=== PATIENT | female | born 1995 | race Caucasian/White ===

== ENCOUNTER → 2019-07-08 13:06 | Outpatient (BNVA) | payer MEDICARE, MEDICAID, SELFPAY | PROVIDERS: Visit Provider Nurse Practitioner Psychiatric/Mental Health | DX: F63.81 Intermittent explosive disorder (principal); F84.0 Autistic disorder; F71 Moderate intellectual disabilities | CPT/HCPCS: 99214 ==

== ENCOUNTER 2019-08-29 14:26 | Inpatient (IN) | payer MEDICARE, MEDICAID, SELFPAY ==
[2019-08-29 14:39] VITALS: RESP 16; BMI 25.0
[2019-08-29 14:48] VITALS: BP 144/84; PULSE 84; RESP 16; TEMP 36.8; O2SAT 100
--- NOTE | 2019-08-29 15:00 | W.ED.PSYCH ---
HPI - Psych General: Chief Complaint: Psychiatric Symptoms Stated Complaint: AMS Time Seen by Provider: 08/29/19 14:55 Source: patient and family Mode of arrival: ambulatory Limitations: no limitations History of Present Illness: HPI Narrative: Patient is a 24-year-old female who has a history of bipolar along with Asperger's and is currently on lithium along with multiple other meds. Her mother and patient states she has been hearing voices and people been telling her to do things through her window and in the [place]. She will not tell me what they are telling her. Mother states she has been increasingly agitated and difficult to control. Patient here does have flight of ideas and is very tangential thoughts. Denies any worsening improving factors. Denies any fevers. complaint: other (hallucinations) Onset (ago): week(s) Duration: intermittent History of same: Yes Relieving factors: none Exacerbating factors: none Associated psychiatric symptoms: racing thoughts and auditory hallucinations Associated symptoms: Reports auditory hallucinations; Deny depression Review of Systems Const: Denies: fever, chills, body aches or change in appetite Eyes: Denies: blurry vision or eye discomfort ENMT: Denies: throat pain or dental pain Card: Denies: chest pain Resp: Denies: shortness of breath GI: Denies: abdominal pain, nausea, vomiting or diarrhea : Denies: painful urination Musc: Denies: neck pain or back pain Skin/Breast: Denies: rash Neuro: Denies: headache Psych: Reports: mood swings, paranoia and auditory hallucinations; Denies: depression Aamir/Lymph: Denies: easy bruising All/Imm: Denies: hives [facility] ED PFSH: Medical History Asperger syndrome Autism Autism spectrum disorder Bipolar disorder History of reactive attachment disorder Hypothyroidism Intermittent explosive disorder Moderate intellectual disabilities Vitamin D deficiency Social History (Updated 07/09/19 @ 13:46 by Park Sheldon LPN) Smoking and tobacco status: never smoked Alcohol intake: never Physical Exam Const: COMMON NORMALS: no apparent distress, oriented x3 and healthy appearing HENMT: COMMON NORMALS: normocephalic and head/scalp atraumatic HEAD & SCALP: normocephalic and atraumatic Eye: COMMON NORMALS: PERRL and EOMs intact bilaterally PUPIL: Yes PERRL Neck/C-Spine: COMMON NORMALS: full ROM and supple Chest: COMMONS NORMALS: inspection of chest normal and palpation of chest normal Resp: COMMON NORMALS: normal respiratory effort, no retractions, no use of accessory muscles and clear to auscultation bilaterally AUSCULTATION: clear to auscultation bilaterally Cardio: COMMON NORMALS: regular rate, regular rhythm and no murmurs RATE: regular rate RHYTHM: regular rhythm GI: COMMON NORMALS: normal to inspection, nondistended, normoactive bowel sounds, soft to palpation, non-tender and no masses PALPATION: Yes soft Extremity: COMMON NORMALS: normal to inspection and full ROM Neuro: COMMON NORMALS: oriented x3, moves all extremities and no focal motor deficits Psych: COMMON NORMALS: cooperative ATTITUDE: Yes paranoid and Yes withdrawn Skin: COMMON NORMALS: no rashes or lesions noted and no wounds GENERAL SKIN EXAM: no rashes or lesions noted MDM - Psych MDM Narrative: Medical decision making narrative: Patient presents here with acute psychosis along with auditory hallucinations. I spoke to psychiatrist and will admit to the psychiatric unit. Patient is medically cleared lab work is all normal. Lab Data: Labs: Lab Results 08/29/19 08/29/19 08/29/19 Range/Units 15:08 15:08 15:08 WBC 7.0 (4.0-10.0) 10^3/ uL RBC 4.27 (4.1-5.3) 10^6/u L Hgb 12.7 (11.5-15.3) g/dL Hct 39.8 (37.0-47.0) % MCV 93.2 (81-99) fL MCH 29.7 (28.0-34.0) pg MCHC 31.9 (30.0-36.0) g/dL RDW 11.9 L (12.1-15.1) % Plt Count 197 (130-400) 10^3/c mm MPV 11.1 H (7.4-10.4) fL Neut % (Auto) 66.3 % Lymph % (Auto) 25.2 % [place] % (Auto) 6.3 % Eos % (Auto) 1.3 % Baso % (Auto) 0.6 % Neut # (Auto) 4.6 (1.8-7.7) 10^3/u L Lymph # (Auto) 1.8 (0.8-4.8) 10^3/u L [place] # (Auto) 0.4 (0.2-0.9) 10^3/u L Eos # (Auto) 0.1 (0.0-0.8) 10^3/u L Baso # (Auto) 0.0 (0.0-0.1) 10^3/u L Nucleated RBC % (a uto) 0 % Nucleated RBCs # 0.0 /100WBC Sodium 141 (136-145) mmol/L Potassium 3.6 (3.5-5.1) mmol/L Chloride 106 (98-107) mmol/L Carbon Dioxide 26 (22-29) mmol/L Anion Gap 12.6 (5-19) BUN 6 (6-20) mg/dL Creatinine 0.8 (0.5-0.9) mg/dL GFR Calculation 89.7 L (90-130) mL/min Glucose 109 (65-115) mg/dL Calculated Osmolal ity 288 (285-295) mOsm/k g Calcium 10.7 H (8.5-10.5) mg/dL Total Bilirubin 0.2 (0.15-1.2) mg/dL AST 15 (0-32) U/L ALT 16 (0-33) U/L Alkaline Phosphata se 62 (35-105) IU/L Total Protein 7.4 (6.6-8.7) g/dL Albumin 5.0 (3.5-5.2) g/dL Globulin 2.4 (1.3-4.6) g/dL HCG, Qual (Negative) Salicylates < 0.3 L (3-10) mg/dL Acetaminophen < 5.0 L (10-30) ug/mL [place] 1.0 (0.6-1.2) mmol/L Ethyl Alcohol < 10 (0-10) mg/dL 08/28/20 Range/Units 15:11 WBC (4.0-10.0) 10^3/ uL RBC (4.1-5.3) 10^6/u L Hgb (11.5-15.3) g/dL Hct (37.0-47.0) % MCV (81-99) fL MCH (28.0-34.0) pg MCHC (30.0-36.0) g/dL RDW (12.1-15.1) % Plt Count (130-400) 10^3/c mm MPV (7.4-10.4) fL Neut % (Auto) % Lymph % (Auto) % [place] % (Auto) % Eos % (Auto) % Baso % (Auto) % Neut # (Auto) (1.8-7.7) 10^3/u L Lymph # (Auto) (0.8-4.8) 10^3/u L [place] # (Auto) (0.2-0.9) 10^3/u L Eos # (Auto) (0.0-0.8) 10^3/u L Baso # (Auto) (0.0-0.1) 10^3/u L Nucleated RBC % (a uto) % Nucleated RBCs # /100WBC Sodium (136-145) mmol/L Potassium (3.5-5.1) mmol/L Chloride (98-107) mmol/L Carbon Dioxide (22-29) mmol/L Anion Gap (5-19) BUN (6-20) mg/dL Creatinine (0.5-0.9) mg/dL GFR Calculation (90-130) mL/min Glucose (65-115) mg/dL Calculated Osmolal ity (285-295) mOsm/k g Calcium (8.5-10.5) mg/dL Total Bilirubin (0.15-1.2) mg/dL AST (0-32) U/L ALT (0-33) U/L Alkaline Phosphata se (35-105) IU/L Total Protein (6.6-8.7) g/dL Albumin (3.5-5.2) g/dL Globulin (1.3-4.6) g/dL HCG, Qual Negative (Negative) Salicylates (3-10) mg/dL Acetaminophen (10-30) ug/mL [place] (0.6-1.2) mmol/L Ethyl Alcohol (0-10) mg/dL Discharge Plan Discharge Patient Disposition: Admitted As Inpatient Clinical Impression: Acute psychosis Condition: Stable Referrals: Francisco Clark, SALVATIONIST [Primary Care Provider] - Coding Level of Care Code ED Physical Medicine Physician for g Fwd Exam Comprehensive
[2019-08-29 15:29] LABS: Basophils % 0.6 %; Eosinophils # 0.1 10^3/uL (0.0-0.8); Eosinophils % 1.3 %; Hematocrit 39.8 % (37.0-47.0); Hemoglobin 12.7 g/dL (11.5-15.3); Lymphocytes # 1.8 10^3/uL (0.8-4.8); Lymphocytes % 25.2 %; Mean Corpuscular HGB Conc 31.9 g/dL (30.0-36.0); Mean Corpuscular Hemoglobin 29.7 pg (28.0-34.0); Mean Corpuscular Volume 93.2 fL (81-99); Mean Platelet Volume 11.1 fL (7.4-10.4); Monocytes # 0.4 10^3/uL (0.2-0.9); Monocytes % 6.3 %; Neutrophils # 4.6 10^3/uL (1.8-7.7); Neutrophils % 66.3 %; Nucleated Red Blood Cells % 0 %; Platelet Count 197 10^3/cmm (130-400); Red Blood Count 4.27 10^6/uL (4.1-5.3); Red Cell Distribution Width 11.9 % (12.1-15.1)
[2019-08-29 15:41] LABS: HCG Qualitative Urine. Negative (Negative)
[2019-08-29 15:44] LABS: Alanine Aminotransferase 16 U/L (0-33); Alkaline Phosphatase 62 IU/L (35-105); Anion Gap 12.6 (5-19); Aspartate Amino Transferase 15 U/L (0-32); Blood Urea Nitrogen 6 mg/dL (6-20); Calcium 10.7 mg/dL (8.5-10.5); Carbon Dioxide 26 mmol/L (22-29); Chloride 106 mmol/L (98-107); Globulin 2.4 g/dL (1.3-4.6); Glomerular Filtration Rate 89.7 mL/min (90-130); Glucose 109 mg/dL (65-115); Osmolality Calculated 288 mOsm/kg (285-295); Potassium 3.6 mmol/L (3.5-5.1); Sodium 141 mmol/L (136-145); Total Bilirubin 0.2 mg/dL (0.15-1.2); Total Protein 7.4 g/dL (6.6-8.7)
[2019-08-29 15:48] LABS: Acetaminophen < 5.0 ug/mL (10-30); Salicylate < 0.3 mg/dL (3-10)
[2019-08-29 15:49] LABS: Alcohol Level < 10 mg/dL (0-10)
[2019-08-29 16:37] VITALS: BP 140/82; PULSE 68; RESP 18; O2SAT 100
[2019-08-29 17:05] VITALS: BP 125/81; PULSE 70; RESP 18; TEMP 36.9; O2SAT 100
[2019-08-29 17:09] LABS: Amphetamines Screen Urine Negative (Negative); Barbiturates Screen Urine Negative (Negative); Benzodiazepines Screen Urine Negative (Negative); Cocaine Screen Urine Negative (Negative); Opiate Screen Urine Negative (Negative); PCP Screen Urine Negative (Negative); THC Screen Urine Negative (Negative)
[2019-08-29] MEDS: lithium carbonate 300 mg Capsule 600 MG PO (21:27)
[2019-08-29] MEDS: trazodone 50 mg Tablet PO (21:27)
[2019-08-29] MEDS: mirtazapine 30 mg Tablet PO (21:27)
[2019-08-29 22:00] VITALS: BP 136/82; PULSE 76; RESP 17; TEMP 36.9; O2SAT 98
[2019-08-30 06:00] VITALS: BP 116/74; PULSE 76; RESP 18; TEMP 37.2; O2SAT 99
[2019-08-30] MEDS: lithium carbonate 300 mg Capsule PO (06:36)
--- NOTE | 2019-08-30 06:37 | PC.NURSE ---
am med at this time
[2019-08-30] MEDS: montelukast sodium 10 mg Tablet PO (08:32)
[2019-08-30] MEDS: levothyroxine 25 mcg Tablet PO (08:32)
--- NOTE | 2019-08-30 12:15 | PM.NHP ---
Providers/Chief Complaint Admitting Physician: Vishnu Grijalva MD Primary Care Provider: VANESA Stark Chief Complaint: AMS;96 HPI NPU History of Present Illness Jina Ugalde is a 24 year old female Chief complaint: History of present illness: Laboratory Tests 08/29/19 08/29/19 15:08 15:11 Urine Opiates Screen Negative Ur Barbiturates Screen Negative Ur Phencyclidine Scrn Negative Ur Amphetamines Screen Negative U Benzodiazepines Scrn Negative Urine Cocaine Screen Negative U Marijuana (THC) Screen Negative Ethyl Alcohol < 10 ER physician note: Patient is a 24-year-old female who has a history of bipolar along with Asperger's and is currently on lithium along with multiple other meds. Her mother and patient states she has been hearing voices and people been telling her to do things through her window and in the [place]. She will not tell me what they are telling her. Mother states she has been increasingly agitated and difficult to control. Patient here does have flight of ideas and is very tangential thoughts. Denies any worsening improving factor Mental health history: Social history: Legal history: Past medical history: Mental Status Exam: Appearance: hygiene is fair; no gross neurological deficits., gait is unremarkable; AIMS=0 Speech: Speech is of normal rate and rhythm and easily understood. Thought processes: Thought processes are abstract. Judgment is not adequate for safety. Associations: intact Psychotic processes: There is no indication of guarding or paranoia. There is no attention to the internal stimuli. Auditory and visual hallucinations are denied. Judgment: Insight is fair. Problem solving skills are adequate for safety. Orientation: The patient is oriented to person, place time and situation. Memory: no deficits noted in immediate, intermediate, or remote spheres. Attention: The patient is alert and interpersonally engaged. Language: Verbalizations are coherent. Fund of knowledge: Fund of knowledge is adequate. Affect/Mood: Affect is consistent with a depressed mood. ([]) suicidal ideation Affective range iappropriate. Psychosis: perception unimpaired except through cognitive distortion; reality testing intact. Diagnoses: Assessment: Treatment plan: Due to the psychiatric conditions and treatment listed in the Assessment and Plan - the patient requires continued hospitalization. Will provide a safe and therapeutic environment for patient.. Will continue inpatient treatment to allow for medication adjustment and monitoring. Will continue q15 min safety checks. Will continue current medications and monitor for medication side effects. Monitor patient's mood, sleep, appetite, and behavior closely. Encourage patient to participate in individual and group therapeutic sessions on the hopper. Estimated length of stay 5 days The expected benefits and potential side effects of patient's psychiatric medications were discussed with the patient. The patient understands and consents to treatment.CRITERIA FOR DISCHARGE: stable on medications and no longer an im Meds NPU Home Medications Medication Instructions Recorded Confirmed Type ibuprofen 200 mg capsule 400 mg PO Q8H PRN 07/08/19 08/29/19 History levothyroxine 25 mcg capsule 25 mcg PO DAILY 07/08/19 08/29/19 History mometasone 50 mcg/actuation nasal 2 spray INTRANASAL DAILY PRN 07/08/19 08/29/19 History spray Geodon 60 mg PO QAM 08/29/19 08/29/19 History Geodon See Rx Instructions .ROUTE .COMPLEX 08/29/19 08/29/19 History PNV,calcium 38-yppp-pxfbz acid 1 tab PO DAILY 08/29/19 08/29/19 History [ Vitamin Plus Low Iron] Remeron 30 mg PO BEDTIME 08/29/19 08/29/19 History cholecalciferol (vitamin D3) 50,000 unit PO Q7D 08/29/19 08/29/19 History divalproex 250 mg PO BID 08/29/19 08/29/19 History ipratropium bromide 2 spray INTRANASAL TID PRN 08/29/19 08/29/19 History montelukast 10 mg PO DAILY 08/29/19 08/29/19 History prazosin 1 mg PO BEDTIME 08/29/19 08/29/19 History Allergies Allergy/AdvReac Type Severity Reaction Status Date / Time No Known Allergies Allergy Unverified 07/08/19 13:13 PFS NPU PFSH: Medical History Asperger syndrome Autism Autism spectrum disorder Bipolar disorder History of reactive attachment disorder Hypothyroidism Intermittent explosive disorder Moderate intellectual disabilities Vitamin D deficiency Social History (Updated 07/09/19 @ 13:46 by Park Sheldon LPN) Smoking and tobacco status: never smoked Alcohol intake: never Vitals/I&O/Wt Last Vital Signs Temp 98.9 F 08/30/19 06:00 Pulse 76 08/30/19 06:00 Resp 18 08/30/19 06:00 BP 116/74 08/30/19 06:00 Pulse Ox 99 08/30/19 06:00 Weight last 48 hrs Weight 72.575 kg Data NPU : 08/29/19 15:08 08/29/19 15:08 Involuntary Hold Information 96 Hour Hold: 96 Hour Involuntary Admission: Yes 96 Hour Hold Ending Date: 09/04/19 96 Hour Hold Ending Time: 15:20 Coding Level of Care Code Acute Automated Equipment Engineer Technician for Dev Guzmán
--- NOTE | 2019-08-30 12:42 | P.HP_ITS ---
Providers/Chief Complaint Admitting Physician: Vishnu Grijalva MD Primary Care Provider: VANESA Stark Chief Complaint: AMS;96 HPI NPU History of Present Illness CC: I am afraid they are going to kill all my babies. I think I am doing good. Jina Ugalde is a 24 year old female under guardianship t her mother. She was admitted apparently due to increasing auditory hallucinations. The pateint says that the (adoptive) mother is the one who is crazy. However, the patient was so disorganized in her interview that target symptoms coudl not be identified. She knows that she is on lithium and Geodon but believes the lithium is to help calm her down. She does not know what the Geodon is for. She answered questions in such an obtuse manner that the interview provided no factual information (see MSE below). She talked about her 30 yo niece named Mojgan. She has 12 children and she can hear them screaming at night. She spends her day watching . Could not say what she was watching. Laboratory Tests 08/29/19 08/29/19 15:08 15:11 Urine Opiates Screen Negative Ur Barbiturates Screen Negative Ur Phencyclidine Scrn Negative Ur Amphetamines Screen Negative U Benzodiazepines Scrn Negative Urine Cocaine Screen Negative U Marijuana (THC) Screen Negative Ethyl Alcohol < 10 [place] level on current dosage = 1.0 ER physician note: Patient is a 24-year-old female who has a history of bipolar along with Asperger's and is currently on lithium along with multiple other meds. Her mother and patient states she has been hearing voices and people been telling her to do things through her window and in the [place]. She will not tell me what they are telling her. Mother states she has been increasingly agitated and difficult to control. Patient here does have flight of ideas and is very tangential thoughts. Denies any worsening improving factors. Mental health history: pt was able to estimate that she had been hospitalized because my mother wanted it about 8 times variously at [place]. They did nothing that was helpful though she could not name anything that anyone did for her. She could not remember any medication trials that she had. Social history: patient is adopted. Details are unknown. Legal history: no history of felonies or arrests in [place] public record Past medical history:unknown Mental Status Exam: the patient is an alert interpersonally engaged female appearing approximately her stated age. She is wide eyed and hypervigilant. She has a minimal left esotropia. She is not a relaible informant. Information is nonsense much of the time and not internally consistent. Appearance: hygiene is fair; no gross neurological deficits., gait is unremarkable; AIMS=0 Speech: Speech is of normal rate and rhythm and easily understood. Thought processes: Thought processes are illogical She is not goal directed. Answers are non-sequiters often. She speaks ini the format of complete sentences but often they do not make any sense. Judgment is not adequate for safety. Associations: loose and often non-existent Psychotic processes: There is no indication of guarding or paranoia. There is no attention to the internal stimuli. Auditory and visual hallucinations are denied. Judgment: Insight is extremely poor. Problem solving skills are not adequate for safety. Orientation: The patient is oriented to person, place time and situation. Memory: unable to assess memory without collateral information source Attention: The patient is alert and interpersonally engaged. Language: Verbalizations are coherent. Fund of knowledge: Fund of knowledge is not assessed Affect/Mood: Affect is tense and hypervigilant with a euthymic mood. She denied suicidal ideation Affective range good Psychosis: perception is severely impaired by disorganized thinking Diagnoses: Schizophrenia - acute , disorganized type Assessment: This situation is difficult to assess without further background and baseline data. Treatment plan: Due to the psychiatric conditions and treatment listed in the Assessment and Plan - the patient requires continued hospitalization. Will provide a safe and therapeutic environment for patient.. Will continue inpatient treatment to allow for medication adjustment and monitoring. Will continue q15 min safety checks. Will continue current medications and monitor for medication side effects. No further medication interventions will be initiated but will be considered after brief observation period. Monitor patient's mood, sleep, appetite, and behavior closely. Encourage patient to participate in individual and group therapeutic sessions on the hopper. Estimated length of stay 5 days The expected benefits and potential side effects of patient's psychiatric medications were discussed with the patient. The patient understands and consents to treatment.CRITERIA FOR DISCHARGE: stable on medications and no longer an imminent risk Meds NPU Home Medications Medication Instructions Recorded Confirmed Type ibuprofen 200 mg capsule 400 mg PO Q8H PRN 07/08/19 08/29/19 History levothyroxine 25 mcg capsule 25 mcg PO DAILY 07/08/19 08/29/19 History mometasone 50 mcg/actuation nasal 2 spray INTRANASAL DAILY PRN 07/08/19 08/29/19 History spray Geodon 60 mg PO QAM 08/29/19 08/29/19 History Geodon See Rx Instructions .ROUTE .COMPLEX 08/29/19 08/29/19 History PNV,calcium 97-yddx-ctxss acid 1 tab PO DAILY 08/29/19 08/29/19 History [ Vitamin Plus Low Iron] Remeron 30 mg PO BEDTIME 08/29/19 08/29/19 History cholecalciferol (vitamin D3) 50,000 unit PO Q7D 08/29/19 08/29/19 History divalproex 250 mg PO BID 08/29/19 08/29/19 History ipratropium bromide 2 spray INTRANASAL TID PRN 08/29/19 08/29/19 History montelukast 10 mg PO DAILY 08/29/19 08/29/19 History prazosin 1 mg PO BEDTIME 08/29/19 08/29/19 History Allergies Allergy/AdvReac Type Severity Reaction Status Date / Time No Known Allergies Allergy Unverified 07/08/19 13:13 PFSH NPU PFSH: Medical History Asperger syndrome Autism Autism spectrum disorder Bipolar disorder History of reactive attachment disorder Hypothyroidism Intermittent explosive disorder Moderate intellectual disabilities Vitamin D deficiency Social History (Updated 07/09/19 @ 13:46 by Park Sheldon LPN) Smoking and tobacco status: never smoked Alcohol intake: never Vitals/I&O/Wt Last Vital Signs Temp 98.9 F 08/30/19 06:00 Pulse 76 08/30/19 06:00 Resp 18 08/30/19 06:00 BP 116/74 08/30/19 06:00 Pulse Ox 99 08/30/19 06:00 Weight last 48 hrs Weight 72.575 kg Data NPU : 08/29/19 15:08 08/29/19 15:08 Involuntary Hold Information 96 Hour Hold: 96 Hour Involuntary Admission: Yes 96 Hour Hold Ending Date: 09/04/19 96 Hour Hold Ending Time: 15:20 Attestations NPU Medical Necessity Statement*: Pt to remain in hospital another 7-8 nights for assessment of medication tolerance and efficacy. Coding Level of Care Code Acute Chronometer Tester for Dev Guzmán
[2019-08-30 12:51] VITALS: BP 106/72; PULSE 79; RESP 19; TEMP 36.9; O2SAT 99
[2019-08-30] MEDS: mirtazapine 30 mg Tablet PO (21:19)
[2019-08-30] MEDS: lithium carbonate 300 mg Capsule 600 MG PO (21:20)
[2019-08-30 22:00] VITALS: BP 124/79; PULSE 97; RESP 18; TEMP 37; O2SAT 100
[2019-08-31] MEDS: lithium carbonate 300 mg Capsule PO (05:58)
[2019-08-31 06:00] VITALS: BP 124/77; PULSE 91; RESP 17; TEMP 37; O2SAT 100
[2019-08-31] MEDS: montelukast sodium 10 mg Tablet PO (08:44)
[2019-08-31] MEDS: levothyroxine 25 mcg Tablet PO (08:44)
[2019-08-31 13:35] VITALS: BP 86/58; PULSE 97; RESP 18; TEMP 37.4; O2SAT 100
--- NOTE | 2019-08-31 18:36 | PM.NPN ---
Subjective NPU Subjective: Interval history: The patient reports a great deal of paranoid delusional material, alleging for example that her mother is defecating in her food. She says her mother, who is a very jew person, has now taken to worshiping the Devil. She sees all kinds of her mother's behavior as evidence of Devil shinto. Her delusions are quite bizarre and she is fearful. Medications: Reviewed: Yes Medication Review Details: Current Medications Acetaminophen (Tylenol) 650 mg PO Q4H PRN PRN Reason: MILD PAIN Benztropine Mesylate (Cogentin) 1 mg PO BID PRN PRN Reason: Mild Extrapyramidal symptoms Camphor/Menthol/Phenol (Blistex) 1 applic TOPICAL Q1H PRN PRN Reason: DRYNESS Diphenhydramine HCl (Benadryl) 50 mg IM Q4H PRN PRN Reason: Severe Aggression Diphenhydramine HCl (Benadryl) 50 mg IM ONCE PRN PRN Reason: Severe Extrapyramidal Symptoms Haloperidol (Haldol) 5 mg PO Q4H PRN PRN Reason: AGITATION Haloperidol Lactate (Haldol Inj) 5 mg IM Q4H PRN PRN Reason: Severe Aggression Hydroxyzine Pamoate (Vistaril) 50 mg PO Q6H PRN PRN Reason: ANXIETY Ibuprofen (Motrin) 400 mg PO Q8H PRN PRN Reason: MODERATE PAIN Levothyroxine Sodium (Synthroid) 25 mcg PO DAILY [facility] Last Admin: 08/31/19 08:44 Dose: 25 mcg Documented by: [place] Carbonate (Eskalith) 300 mg PO QAM [facility] Last Admin: 08/31/19 05:58 Dose: 300 mg Documented by: [place] Carbonate (Eskalith) 600 mg PO BEDTIME [facility] Last Admin: 08/30/19 21:20 Dose: 600 mg Documented by: Loperamide HCl (Imodium Capsule) 2 mg PO Q6H PRN PRN Reason: DIARRHEA Lorazepam (Ativan) 2 mg IM Q4H PRN PRN Reason: Severe Aggression Mirtazapine (Remeron) 30 mg PO BEDTIME [facility] Last Admin: 08/30/19 21:19 Dose: 30 mg Documented by: Montelukast Sodium (Singulair) 10 mg PO DAILY [facility] Last Admin: 08/31/19 08:44 Dose: 10 mg Documented by: Nicotine (Nicoderm 21 Mg Patch) 1 patch TRANSDERMA DAILY PRN PRN Reason: NICOTINE WITHDRAWAL Nicotine Polacrilex (Nicorette) 2 mg BUCCAL Q2H PRN PRN Reason: NICOTINE WITHDRAWAL Non-Formulary Medication (Ipratropium [place]) 2 spray INTRANASAL TID PRN PRN Reason: unknown Non-Formulary Medication (Mometasone [Nasonex]) 2 spray INTRANASAL DAILY PRN PRN Reason: unknown Non-Formulary Medication (Pnv,Calcium 74-Hvpz-Cehpl Acid [ Vitamin Plus Low Iron]) 1 tab PO DAILY [facility] Last Admin: 08/31/19 08:44 Dose: Not Given Documented by: Olanzapine (Zyprexa Zydis) 5 mg PO Q4H PRN PRN Reason: Agitation/Psychosis Ondansetron HCl (Zofran) 4 mg PO Q6H PRN PRN Reason: NAUSEA AND VOMITING Prazosin HCl (Minipress) 1 mg PO BEDTIME [facility] Trazodone HCl (Desyrel) 50 mg PO BEDTIME PRN PRN Reason: SLEEP Last Admin: 08/29/19 21:27 Dose: 50 mg Documented by: Ziprasidone (Geodon) 60 mg PO DAILY [facility] Mental Status Exam MSE Comments: This is a 24-year-old female who looks terrified, with big, wide eyes. She is in hospital [facility] but clean and neat. Mood is anxious and afraid. Affect is that of someone frozen in fear. Thought processes are slow and methodical but not blocked, loose are racing. Her major psychotic symptom is florid delusional state. She has ideas of reference, interpreting various usually meaningless things as signifying her mother's devil shinto. There is no suicidal or homicidal ideation, plan or intent. Vitals/I&O/Wt Last Vital Signs Temp 99.4 F 08/31/19 13:35 Pulse 97 08/31/19 13:35 Resp 18 08/31/19 13:35 BP 86/58 08/31/19 13:35 Pulse Ox 100 08/31/19 13:35 Weight last 48 hrs Weight 148 lb Data NPU : 08/29/19 15:08 08/29/19 15:08 A&P Assessment and plan (1) Autism spectrum disorder: The patient's current therapy seems to have stabilized this. Status: Acute Code(s): F84.0 - Autistic disorder (2) Intermittent explosive disorder: The patient affirms that the lithium has been very helpful with her outbursts Status: Acute Code(s): F63.81 - Intermittent explosive disorder (3) Acute psychosis: This is a florid aspect of her disorders, requiring pharmacotherapy, millieu and close monitoring now and during aftercare. The Geodon may require even more aggressive titration. We shall see. Status: Acute Code(s): F23 - Brief psychotic disorder Involuntary Hold Information 96 Hour Hold: 96 Hour Involuntary Admission: Yes 96 Hour Hold Ending Date: 09/04/19 96 Hour Hold Ending Time: 15:20 Attestations NPU Medical Necessity Statement*: I anticipate 10-12 midnights additional stay Time Spent in Patient Care: Greater than 35 minutes (>than 50% of time spent in counselling and/or direct pt care on unit). Coding Level of Care Code Acute Band Manager for Dev Guzmán Diagnoses Autism spectrum disorder F84.0 Intermittent explosive disorder F63.81 Acute psychosis F23
[2019-08-31] MEDS: mirtazapine 30 mg Tablet PO (20:47)
[2019-08-31] MEDS: prazosin 1 mg Capsule PO (20:47)
[2019-08-31] MEDS: trazodone 50 mg Tablet PO (20:47)
[2019-08-31] MEDS: lithium carbonate 300 mg Capsule 600 MG PO (20:47)
[2019-08-31 21:00] VITALS: BP 124/88; PULSE 94; RESP 22; TEMP 37.2; O2SAT 99
--- NOTE | 2019-09-01 00:31 | PC.NURSE ---
Pt requested prn for sleep while receiving bedtime meds. Medicated with Trazodone 50mgs po per prn order. Pt then went to her room and fell asleep shortly after. Respirations even and unlabored.
[2019-09-01 06:00] VITALS: BP 117/68; PULSE 68; RESP 20; TEMP 37.2; O2SAT 99
[2019-09-01] MEDS: lithium carbonate 300 mg Capsule PO (06:27)
[2019-09-01] MEDS: ziprasidone hcl 60 mg Capsule PO ×2 (08:35→08:37)
[2019-09-01] MEDS: montelukast sodium 10 mg Tablet PO (08:36)
[2019-09-01] MEDS: levothyroxine 25 mcg Tablet PO (08:36)
[2019-09-01 13:18] VITALS: BP 107/71; PULSE 89; RESP 18; TEMP 37.1; O2SAT 99
--- NOTE | 2019-09-01 20:44 | P.PN_ITS ---
Subjective NPU Subjective: Interval history: Interval history: I am absolutely astonished today. The patient seems transformed. She is open, friendly and jocular. She says she feels very comfortable here and wants to move out of her house. Her mother is her guardian and that may present some complications. She is smiling and makes jokes. The fear is gone. Medications: Reviewed: Yes Medication Review Details: Current Medications Acetaminophen (Tylenol) 650 mg PO Q4H PRN PRN Reason: MILD PAIN Benztropine Mesylate (Cogentin) 1 mg PO BID PRN PRN Reason: Mild Extrapyramidal symptoms Camphor/Menthol/Phenol (Blistex) 1 applic TOPICAL Q1H PRN PRN Reason: DRYNESS Diphenhydramine HCl (Benadryl) 50 mg IM Q4H PRN PRN Reason: Severe Aggression Diphenhydramine HCl (Benadryl) 50 mg IM ONCE PRN PRN Reason: Severe Extrapyramidal Symptoms Haloperidol (Haldol) 5 mg PO Q4H PRN PRN Reason: AGITATION Haloperidol Lactate (Haldol Inj) 5 mg IM Q4H PRN PRN Reason: Severe Aggression Hydroxyzine Pamoate (Vistaril) 50 mg PO Q6H PRN PRN Reason: ANXIETY Ibuprofen (Motrin) 400 mg PO Q8H PRN PRN Reason: MODERATE PAIN Levothyroxine Sodium (Synthroid) 25 mcg PO DAILY [facility] Last Admin: 09/01/19 08:36 Dose: 25 mcg Documented by: [place] Carbonate (Eskalith) 300 mg PO QAM [facility] Last Admin: 09/01/19 06:27 Dose: 300 mg Documented by: [place] Carbonate (Eskalith) 600 mg PO BEDTIME [facility] Last Admin: 08/31/19 20:47 Dose: 600 mg Documented by: Loperamide HCl (Imodium Capsule) 2 mg PO Q6H PRN PRN Reason: DIARRHEA Lorazepam (Ativan) 2 mg IM Q4H PRN PRN Reason: Severe Aggression Mirtazapine (Remeron) 30 mg PO BEDTIME [facility] Last Admin: 08/31/19 20:47 Dose: 30 mg Documented by: Montelukast Sodium (Singulair) 10 mg PO DAILY [facility] Last Admin: 09/01/19 08:36 Dose: 10 mg Documented by: Nicotine (Nicoderm 21 Mg Patch) 1 patch TRANSDERMA DAILY PRN PRN Reason: NICOTINE WITHDRAWAL Nicotine Polacrilex (Nicorette) 2 mg BUCCAL Q2H PRN PRN Reason: NICOTINE WITHDRAWAL Non-Formulary Medication (Ipratropium [place]) 2 spray INTRANASAL TID PRN PRN Reason: unknown Non-Formulary Medication (Mometasone [Nasonex]) 2 spray INTRANASAL DAILY PRN PRN Reason: unknown Non-Formulary Medication (Pnv,Calcium 58-Tebk-Odrkz Acid [ Vitamin Plus Low Iron]) 1 tab PO DAILY [facility] Last Admin: 09/01/19 11:29 Dose: Not Given Documented by: Olanzapine (Zyprexa Zydis) 5 mg PO Q4H PRN PRN Reason: Agitation/Psychosis Ondansetron HCl (Zofran) 4 mg PO Q6H PRN PRN Reason: NAUSEA AND VOMITING Prazosin HCl (Minipress) 1 mg PO BEDTIME [facility] Last Admin: 08/31/19 20:47 Dose: 1 mg Documented by: Ziprasidone (Geodon) 60 mg PO DAILY [facility] Last Admin: 09/01/19 08:37 Dose: 60 mg Documented by: Mental Status Exam MSE Comments: The patient seems more mature today, more commensurate with her 34 years. Mood is comfortable and euthymic. Affect is appropriate and upbeat. There is no fear in her eyes. Thought processes are integrated and much quicker, although not racing, blocked are burdened with looseness of association. There is no evidence of psychosis, such as but not limited to hallucinations, delusions or ideas of reference. Cognitive function is intact including orientation, recent and remote memory, reason, insight and even a bit of judgment. Speech is of normal rate and volume, free of dysarthria, aprosody and pressure. Patient denies suicidal or homicidal ideation, plan or intent. Vitals/I&O/Wt Last Vital Signs Temp 98.7 F 09/01/19 13:18 Pulse 89 09/01/19 13:18 Resp 18 09/01/19 13:18 BP 107/71 09/01/19 13:18 Pulse Ox 99 09/01/19 13:18 Weight last 48 hrs Weight 148 lb Data NPU : 08/29/19 15:08 08/29/19 15:08 A&P Additional A&P Information Assessment and plan (1) Adjustment disorder with disturbance of emotion: The patient is responding to the safety and structure of the milieu. We have to establish aftercare which includes such a millieu. Status: Acute Code(s): F43.29 - Adjustment disorder with other symptoms (2) Suicidal ideation: This is derivative of her acute adjustment/psychosis, which has waned. Status: Acute Code(s): R45.851 - Suicidal ideations (3) Homeless: Placement must be undertaken. Status: Acute Code(s): Z59.0 - Homelessness Involuntary Hold Information 96 Hour Hold: 96 Hour Involuntary Admission: Yes 96 Hour Hold Ending Date: 09/04/19 96 Hour Hold Ending Time: 15:20 Attestations NPU Medical Necessity Statement*: I anticipate 4-5 midnights Time Spent in Patient Care: Greater than 35 minutes (>than 50% of time spent in counselling and/or direct pt care on unit) . 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
[2019-09-01] MEDS: lithium carbonate 300 mg Capsule 600 MG PO (21:00)
[2019-09-01] MEDS: mirtazapine 30 mg Tablet PO (21:01)
[2019-09-01] MEDS: prazosin 1 mg Capsule PO (21:01)
[2019-09-01 21:24] VITALS: BP 123/85; PULSE 101; RESP 23; TEMP 37.3; O2SAT 99
[2019-09-02 06:00] VITALS: BP 120/84; PULSE 85; RESP 21; TEMP 36.7; O2SAT 100
--- NOTE | 2019-09-02 08:17 | PM.NPN ---
Subjective NPU Subjective: Interval history: The patient again is much calmer. We have a friendly conversation. She expresses her desire for placement in a care home. There is something very fearsome (to her) at home. How much of this is paranoia is not yet understood. Medications: Reviewed: Yes Medication Review Details: Current Medications Acetaminophen (Tylenol) 650 mg PO Q4H PRN PRN Reason: MILD PAIN Benztropine Mesylate (Cogentin) 1 mg PO BID PRN PRN Reason: Mild Extrapyramidal symptoms Camphor/Menthol/Phenol (Blistex) 1 applic TOPICAL Q1H PRN PRN Reason: DRYNESS Diphenhydramine HCl (Benadryl) 50 mg IM Q4H PRN PRN Reason: Severe Aggression Diphenhydramine HCl (Benadryl) 50 mg IM ONCE PRN PRN Reason: Severe Extrapyramidal Symptoms Haloperidol (Haldol) 5 mg PO Q4H PRN PRN Reason: AGITATION Haloperidol Lactate (Haldol Inj) 5 mg IM Q4H PRN PRN Reason: Severe Aggression Hydroxyzine Pamoate (Vistaril) 50 mg PO Q6H PRN PRN Reason: ANXIETY Ibuprofen (Motrin) 400 mg PO Q8H PRN PRN Reason: MODERATE PAIN Levothyroxine Sodium (Synthroid) 25 mcg PO DAILY [facility]PLACED BY [facility] Last Admin: 09/01/19 08:36 Dose: 25 mcg Documented by: [place] Carbonate (Eskalith) 600 mg PO BEDTIME REPLACED BY [facility] Last Admin: 09/01/19 21:00 Dose: 600 mg Documented by: [place] Carbonate (Eskalith) 300 mg PO DAILY [facility] Loperamide HCl (Imodium Capsule) 2 mg PO Q6H PRN PRN Reason: DIARRHEA Lorazepam (Ativan) 2 mg IM Q4H PRN PRN Reason: Severe Aggression Mirtazapine (Remeron) 30 mg PO BEDTIME REPLACED BY [facility] Last Admin: 09/01/19 21:01 Dose: 30 mg Documented by: Montelukast Sodium (Singulair) 10 mg PO DAILY [facility] Last Admin: 09/01/19 08:36 Dose: 10 mg Documented by: Nicotine (Nicoderm 21 Mg Patch) 1 patch TRANSDERMA DAILY PRN PRN Reason: NICOTINE WITHDRAWAL Nicotine Polacrilex (Nicorette) 2 mg BUCCAL Q2H PRN PRN Reason: NICOTINE WITHDRAWAL Non-Formulary Medication (Ipratropium [place]) 2 spray INTRANASAL TID PRN PRN Reason: unknown Non-Formulary Medication (Mometasone [Nasonex]) 2 spray INTRANASAL DAILY PRN PRN Reason: unknown Non-Formulary Medication (Pnv,Calcium 27-Zldw-Sypha Acid [ Vitamin Plus Low Iron]) 1 tab PO DAILY [facility]PL[facility] Last Admin: 09/02/19 07:57 Dose: Not Given Documented by: Olanzapine (Zyprexa Zydis) 5 mg PO Q4H PRN PRN Reason: Agitation/Psychosis Ondansetron HCl (Zofran) 4 mg PO Q6H PRN PRN Reason: NAUSEA AND VOMITING Prazosin HCl (Minipress) 1 mg PO BEDTIME REPLACED BY [facility] Last Admin: 09/01/19 21:01 Dose: 1 mg Documented by: Ziprasidone (Geodon) 60 mg PO DAILY REPLACED BY [facility] Last Admin: 09/01/19 08:37 Dose: 60 mg Documented by: Mental Status Exam MSE Comments: The patient is calm, friendly and approachable. There is no evidence of the terror which once resided in her eyes. Mood is euthymic and affect is subdued but appropriate. Thought processes are integrated and free of any racing, blocking or looseness of association. There is no evidence of psychosis such as but not limited to hallucination, delusion or ideas of reference. Speech is of normal rate and volume, without dysarthria, aprosody or pressure. Cognitive functions, including orientation, recent and remote memory, capacity for reason, absent to her fears about her house, are mostly unimpaired. Insight and judgment appear to be returning. The patient denies suicidal or homicidal ideation, plan or intent. Vitals/I&O/Wt Last Vital Signs Temp 98.0 F 09/02/19 06:00 Pulse 85 09/02/19 06:00 Resp 21 H 09/02/19 06:00 BP 120/84 09/02/19 06:00 Pulse Ox 100 09/02/19 06:00 Data NPU : 08/29/19 15:08 08/29/19 15:08 A&P Assessment and plan (1) Acute psychosis: Psychotic symptoms seem to be resolving. Status: Acute Code(s): F23 - Brief psychotic disorder (2) Autism spectrum disorder: Autistic symptoms are diminished Status: Chronic Code(s): F84.0 - Autistic disorder (3) Intermittent explosive disorder: We have seen none of the explosive conduct pertinent to this diagnosis. Status: Chronic Code(s): F63.81 - Intermittent explosive disorder Involuntary Hold Information 96 Hour Hold: 96 Hour Involuntary Admission: Yes 96 Hour Hold Ending Date: 09/04/19 96 Hour Hold Ending Time: 15:20 Attestations NPU Medical Necessity Statement*: I anticipate 4-6 midnights additional stay. Time Spent in Patient Care: Greater than 35 minutes (>than 50% of time spent in counselling and/or direct pt care on unit). Coding Level of Care Code Acute Behavioral Health Rn for [facility] Fwd Diagnoses Acute psychosis F23 Autism spectrum disorder F84.0 Intermittent explosive disorder F63.81
[2019-09-02] MEDS: levothyroxine 25 mcg Tablet PO (08:46)
[2019-09-02] MEDS: lithium carbonate 300 mg Capsule PO (08:46)
[2019-09-02] MEDS: montelukast sodium 10 mg Tablet PO (08:47)
[2019-09-02] MEDS: ziprasidone hcl 60 mg Capsule PO (08:48)
[2019-09-02 14:00] VITALS: BP 119/79; PULSE 109; RESP 20; TEMP 36.6; O2SAT 97
[2019-09-02 20:45] VITALS: BP 132/84; PULSE 91; RESP 20; TEMP 37.2; O2SAT 100
[2019-09-02] MEDS: prazosin 1 mg Capsule PO (20:52)
[2019-09-02] MEDS: lithium carbonate 300 mg Capsule 600 MG PO (20:52)
[2019-09-02] MEDS: mirtazapine 30 mg Tablet PO (20:52)
[2019-09-03 06:00] VITALS: BP 125/88; PULSE 99; RESP 23; TEMP 36.9; O2SAT 97
[2019-09-03] MEDS: ziprasidone hcl 60 mg Capsule PO ×2 (08:16→16:52)
[2019-09-03] MEDS: montelukast sodium 10 mg Tablet PO (08:16)
[2019-09-03] MEDS: levothyroxine 25 mcg Tablet PO (08:16)
[2019-09-03] MEDS: lithium carbonate 300 mg Capsule PO (08:17)
[2019-09-03 14:00] VITALS: BP 130/84; PULSE 90; RESP 20; TEMP 37; O2SAT 100
--- NOTE | 2019-09-03 15:46 | PM.NPN ---
Subjective NPU Subjective: Interval history: The patient's paranoia fluoresces. Her delusions are bizarre, involving defecation in her food, plotting in the family to have her raped, etc. I explained to her that an increase in her Geodon might be helpful in rendering her more comfortable. She agrees. Medications: Reviewed: Yes Medication Review Details: Current Medications Acetaminophen (Tylenol) 650 mg PO Q4H PRN PRN Reason: MILD PAIN Benztropine Mesylate (Cogentin) 1 mg PO BID PRN PRN Reason: Mild Extrapyramidal symptoms Camphor/Menthol/Phenol (Blistex) 1 applic TOPICAL Q1H PRN PRN Reason: DRYNESS Diphenhydramine HCl (Benadryl) 50 mg IM Q4H PRN PRN Reason: Severe Aggression Diphenhydramine HCl (Benadryl) 50 mg IM ONCE PRN PRN Reason: Severe Extrapyramidal Symptoms Haloperidol (Haldol) 5 mg PO Q4H PRN PRN Reason: AGITATION Haloperidol Lactate (Haldol Inj) 5 mg IM Q4H PRN PRN Reason: Severe Aggression Hydroxyzine Pamoate (Vistaril) 50 mg PO Q6H PRN PRN Reason: ANXIETY Ibuprofen (Motrin) 400 mg PO Q8H PRN PRN Reason: MODERATE PAIN Levothyroxine Sodium (Synthroid) 25 mcg PO DAILY [facility] Last Admin: 09/03/19 08:16 Dose: 25 mcg Documented by: [place] Carbonate (Eskalith) 600 mg PO BEDTIME [facility] Last Admin: 09/02/19 20:52 Dose: 600 mg Documented by: [place] Carbonate (Eskalith) 300 mg PO DAILY [facility] Last Admin: 09/03/19 08:17 Dose: 300 mg Documented by: Loperamide HCl (Imodium Capsule) 2 mg PO Q6H PRN PRN Reason: DIARRHEA Mirtazapine (Remeron) 30 mg PO BEDTIME [facility] Last Admin: 09/02/19 20:52 Dose: 30 mg Documented by: Montelukast Sodium (Singulair) 10 mg PO DAILY [facility] Last Admin: 09/03/19 08:16 Dose: 10 mg Documented by: Nicotine (Nicoderm 21 Mg Patch) 1 patch TRANSDERMA DAILY PRN PRN Reason: NICOTINE WITHDRAWAL Nicotine Polacrilex ([place]orette) 2 mg BUCCAL Q2H PRN PRN Reason: NICOTINE WITHDRAWAL Non-Formulary Medication (Ipratropium [place]) 2 spray INTRANASAL TID PRN PRN Reason: unknown Non-Formulary Medication (Mometasone [Nasonex]) 2 spray INTRANASAL DAILY PRN PRN Reason: unknown Non-Formulary Medication (Pnv,Calcium 09-Koke-Bjkob Acid [ Vitamin Plus Low Iron]) 1 tab PO DAILY [facility] Last Admin: 09/02/19 07:57 Dose: Not Given Documented by: Olanzapine (Zyprexa Zydis) 5 mg PO Q4H PRN PRN Reason: Agitation/Psychosis Ondansetron HCl (Zofran) 4 mg PO Q6H PRN PRN Reason: NAUSEA AND VOMITING Prazosin HCl (Minipress) 1 mg PO BEDTIME [facility] Last Admin: 09/02/19 20:52 Dose: 1 mg Documented by: Ziprasidone (Geodon) 60 mg PO BID [facility] Mental Status Exam MSE Comments: The patient is clean and neat. She presents at her stated age. Mood is oddly calm. Affect is blunted. Thought processes are integrated and free of any racing, blocking or looseness of association. There are however bizarre delusions as described above but no hallucinations. Speech is soft, with no dysarthria, aprosody or pressure. Cognitive functions are intact absent delusional material. Patient denies suicidal or homicidal ideation, plan or intent. Vitals/I&O/Wt Last Vital Signs Temp 98.6 F 09/03/19 14:00 Pulse 90 09/03/19 14:00 Resp 20 H 09/03/19 14:00 BP 130/84 09/03/19 14:00 Pulse Ox 100 09/03/19 14:00 Data NPU : 08/29/19 15:08 08/29/19 15:08 A&P Assessment and plan (1) Acute psychosis: I am increasing her Geodon to 60 mg twice daily. Further titration may occur. Status: Acute Code(s): F23 - Brief psychotic disorder (2) Autism spectrum disorder: Status: Chronic Code(s): F84.0 - Autistic disorder Involuntary Hold Information 96 Hour Hold: 96 Hour Involuntary Admission: Yes 96 Hour Hold Ending Date: 09/04/19 96 Hour Hold Ending Time: 15:20 Attestations NPU Medical Necessity Statement*: I anticipate 5 to 7 midnights at least 2 midnights' additional stay is indicated. Time Spent in Patient Care: Greater than 35 minutes (>than 50% of time spent in counselling and/or direct pt care on unit). 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
--- NOTE | 2019-09-03 17:34 | PC.SOCIAL ---
important message for medicare to be addressed with legal guardian. this wedding planner has made an attempt to reach guardian today. Discharge date is unknown at this time. Patient said that she was better; however, she is not ready for discharge. Doctor is not ready to discharge her. Patient states that her sleep needs to be better.
[2019-09-03] MEDS: hyDROXYzine 25 mg Capsule 50 MG PO (20:51)
[2019-09-03] MEDS: mirtazapine 30 mg Tablet PO (20:51)
[2019-09-03] MEDS: lithium carbonate 300 mg Capsule 600 MG PO (20:51)
[2019-09-03] MEDS: prazosin 1 mg Capsule PO (20:51)
--- NOTE | 2019-09-03 20:51 | PC.NURSE ---
Pt given HS meds at this time and PRN visteril per pt request.
--- NOTE | 2019-09-03 20:53 | PC.NURSE ---
HS meds given at this time.
[2019-09-03 22:00] VITALS: BP 116/76; PULSE 97; RESP 19; TEMP 37.1; O2SAT 98
[2019-09-04 06:00] VITALS: BP 125/78; PULSE 84; RESP 17; TEMP 36.7; O2SAT 98
[2019-09-04] MEDS: levothyroxine 25 mcg Tablet PO (08:35)
[2019-09-04] MEDS: ziprasidone hcl 60 mg Capsule PO ×2 (08:35→18:37)
[2019-09-04] MEDS: lithium carbonate 300 mg Capsule PO (08:35)
[2019-09-04] MEDS: montelukast sodium 10 mg Tablet PO (08:36)
[2019-09-04 14:00] VITALS: BP 118/75; PULSE 88; RESP 18; TEMP 37.2; O2SAT 100
--- NOTE | 2019-09-04 14:46 | PC.SOCIAL ---
called patient's mom again about important message for medicare. no answer
--- NOTE | 2019-09-04 15:02 | PC.SOCIAL ---
message left for guardian to provide an email address so that turnaround planner can provide important message for medicare to the guardian
--- NOTE | 2019-09-04 16:15 | PM.NPN ---
Subjective NPU Subjective: Interval history: Jina presents today reporting that she has been on a higher dose of Geodon in the past. We discussed the risks benefits and alternatives of increasing that medication and she understood and agreed to proceed as is documented in the note. She endorsed ongoing paranoia and had little insight or ability to add a sense of what was driving her decompensation. She was sitting in her room alone seeming somewhat lost and was clearly anxious having a new provider.She spoke about strange things like the possibility of her mom putting feces, human flesh or other inappropriate things in her food. She talked about seeing a zipper on someones back so they could possibly come out of that body. Mental Status Exam MSE Comments: This is a well-nourished well-developed white female with adequate dress grooming and eye contact with very prominent glasses and magnification of her eyes size. Semicooperative with exam in mild distress. Speech was decreased rate and volume almost mousy. Mood described as okay, affect subdued and anxious. Thought process organized. Thought content: Patient denied suicidal or homicidal ideations, there were no delusions reported but clear delusional content existed as she talked about the child in question speaking to her and concerns about spiritual realities or demonic realities, she denied any auditory or visual hallucinations. Attention and concentration were limited and memory appeared unreliable but none were formally tested. She is alert and oriented times person and place. Insight and judgment are impaired. Vitals/I&O/Wt Last Vital Signs Temp 98.9 F 09/04/19 14:00 Pulse 88 09/04/19 14:00 Resp 18 09/04/19 14:00 BP 118/75 09/04/19 14:00 Pulse Ox 100 09/04/19 14:00 Home Medications ibuprofen 200 mg capsule 400 mg PO Q8H PRN 07/08/19 [History Confirmed 08/29/19] lithium carbonate 300 mg capsule 300 mg PO .COMPLEX #90 cap 07/08/19 [Rx Confirmed 08/29/19] mometasone 50 mcg/actuation nasal spray 2 spray INTRANASAL DAILY PRN 07/08/19 [History Confirmed 08/29/19] Geodon 60 mg PO QAM 08/29/19 [History Confirmed 08/29/19] Geodon See Rx Instructions .ROUTE .COMPLEX 08/29/19 [History Confirmed 08/29/19] PNV,calcium 71-jyds-qllff acid [ Vitamin Plus Low Iron] 1 tab PO DAILY 08/29/19 [History Confirmed 08/29/19] Remeron 30 mg PO BEDTIME 08/29/19 [History Confirmed 08/29/19] cholecalciferol (vitamin D3) 50,000 unit PO Q7D 08/29/19 [History Confirmed 08/29/19] divalproex 250 mg PO BID 08/29/19 [History Confirmed 08/29/19] ipratropium bromide 2 spray INTRANASAL TID PRN 08/29/19 [History Confirmed 08/29/19] montelukast 10 mg PO DAILY 08/29/19 [History Confirmed 08/29/19] prazosin 1 mg PO BEDTIME 08/29/19 [History Confirmed 08/29/19] levothyroxine 25 mcg tablet 25 mcg PO DAILY #30 tab 09/03/19 [Rx] Active Medications Acetaminophen (Tylenol) 650 mg PO Q4H PRN PRN Reason: MILD PAIN Benztropine Mesylate (Cogentin) 1 mg PO BID PRN PRN Reason: Mild Extrapyramidal symptoms Camphor/Menthol/Phenol (Blistex) 1 applic TOPICAL Q1H PRN PRN Reason: DRYNESS Diphenhydramine HCl (Benadryl) 50 mg IM Q4H PRN PRN Reason: Severe Aggression Diphenhydramine HCl (Benadryl) 50 mg IM ONCE PRN PRN Reason: Severe Extrapyramidal Symptoms Haloperidol (Haldol) 5 mg PO Q4H PRN PRN Reason: AGITATION Haloperidol Lactate (Haldol Inj) 5 mg IM Q4H PRN PRN Reason: Severe Aggression Hydroxyzine Pamoate (Vistaril) 50 mg PO Q6H PRN PRN Reason: ANXIETY Last Admin: 09/03/19 20:51 Dose: 50 mg Documented by: Ibuprofen (Motrin) 400 mg PO Q8H PRN PRN Reason: MODERATE PAIN Levothyroxine Sodium (Synthroid) 25 mcg PO DAILY [facility] Last Admin: 09/04/19 08:35 Dose: 25 mcg Documented by: [place] Carbonate (Eskalith) 600 mg PO BEDTIME [facility] Last Admin: 09/04/19 20:50 Dose: 600 mg Documented by: [place] Carbonate (Eskalith) 300 mg PO DAILY [facility] Last Admin: 09/04/19 08:35 Dose: 300 mg Documented by: Loperamide HCl (Imodium Capsule) 2 mg PO Q6H PRN PRN Reason: DIARRHEA Mirtazapine (Remeron) 30 mg PO BEDTIME [facility] Last Admin: 09/04/19 20:51 Dose: 30 mg Documented by: Montelukast Sodium (Singulair) 10 mg PO DAILY [facility] Last Admin: 09/04/19 08:36 Dose: 10 mg Documented by: Nicotine (Nicoderm 21 Mg Patch) 1 patch TRANSDERMA DAILY PRN PRN Reason: NICOTINE WITHDRAWAL Nicotine Polacrilex ([place]oret[place]) 2 mg BUCCAL Q2H PRN PRN Reason: NICOTINE WITHDRAWAL Non-Formulary Medication (Ipratropium [place]) 2 spray INTRANASAL TID PRN PRN Reason: unknown Non-Formulary Medication (Mometasone [Nasonex]) 2 spray INTRANASAL DAILY PRN PRN Reason: unknown Non-Formulary Medication (Pnv,Calcium 14-Uftv-Moecz Acid [ Vitamin Plus Low Iron]) 1 tab PO DAILY [facility] Last Admin: 09/02/19 07:57 Dose: Not Given Documented by: Olanzapine (Zyprexa Zydis) 5 mg PO Q4H PRN PRN Reason: Agitation/Psychosis Last Admin: 09/04/19 20:51 Dose: 5 mg Documented by: Ondansetron HCl (Zofran) 4 mg PO Q6H PRN PRN Reason: NAUSEA AND VOMITING Prazosin HCl (Minipress) 1 mg PO BEDTIME [facility] Last Admin: 09/04/19 20:51 Dose: 1 mg Documented by: Ziprasidone (Geodon) 80 mg PO BID [facility] Data NPU : 08/29/19 15:08 08/29/19 15:08 A&P Assessment and plan (1) Acute psychosis: This is a 24-year-old white female with psychosis, intellectual disabilities and behavioral issues who presents acutely psychotic and adjusting to the medications being prescribed. 1. Continue current medication except increase the Geodon to 80 mg p.o. twice daily. 2. Encourage individual, group and milieu therapy. 3. Continue to 15-minute checks for safety. Status: Acute Code(s): F23 - Brief psychotic disorder (2) Moderate intellectual disabilities: Status: Acute Code(s): F71 - Moderate intellectual disabilities (3) Autism spectrum disorder: Status: Chronic Code(s): F84.0 - Autistic disorder (4) Intermittent explosive disorder: Status: Chronic Code(s): F63.81 - Intermittent explosive disorder Involuntary Hold Information 96 Hour Hold: 96 Hour Involuntary Admission: Yes 96 Hour Hold Ending Date: 09/04/19 96 Hour Hold Ending Time: 15:20 Attestations NPU Medical Necessity Statement*: Inpatient hospitalization is medically necessary and the clinically appropriate intervention at this time. We will monitor medications and adjust as indicated. Likely length of stay 3 to 5 days. Coding Level of Care Code Acute Home Delivery Driver for [facility] Fwd Diagnoses Acute psychosis F23 Moderate intellectual disabilities F71 Autism spectrum disorder F84.0 Intermittent explosive disorder F63.81
[2019-09-04 20:29] VITALS: BP 128/87; PULSE 95; RESP 18; TEMP 37.1; O2SAT 100
[2019-09-04] MEDS: lithium carbonate 300 mg Capsule 600 MG PO (20:50)
[2019-09-04] MEDS: mirtazapine 30 mg Tablet PO (20:51)
[2019-09-04] MEDS: OLANZapine ODT 5 MG TABLET PO (20:51)
[2019-09-04] MEDS: prazosin 1 mg Capsule PO (20:51)
--- NOTE | 2019-09-04 20:55 | PC.NURSE ---
HS meds lithium, remeron, minipress and PRN zyprexa given at this time.
[2019-09-05 06:00] VITALS: BP 139/90; PULSE 79; RESP 18; TEMP 37; O2SAT 99
[2019-09-05] MEDS: ziprasidone hcl 40 mg Capsule 80 MG PO ×2 (08:43→17:14)
[2019-09-05] MEDS: montelukast sodium 10 mg Tablet PO (08:43)
[2019-09-05] MEDS: lithium carbonate 300 mg Capsule PO (08:43)
[2019-09-05] MEDS: levothyroxine 25 mcg Tablet PO (08:43)
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
[2019-09-05 14:00] VITALS: BP 126/80; PULSE 100; RESP 18; TEMP 37.2; O2SAT 99
--- NOTE | 2019-09-05 14:41 | PC.SOCIAL ---
important message was provided at 10:05 with the guardian via phone. she already had been educated about important message for medicare in the past.
[2019-09-05 20:23] VITALS: BP 115/72; PULSE 83; RESP 16; TEMP 37.1; O2SAT 99
[2019-09-05] MEDS: mirtazapine 30 mg Tablet PO (20:48)
[2019-09-05] MEDS: prazosin 1 mg Capsule PO (20:48)
[2019-09-05] MEDS: OLANZapine ODT 5 MG TABLET PO (20:48)
[2019-09-05] MEDS: hyDROXYzine 25 mg Capsule 50 MG PO (20:48)
[2019-09-05] MEDS: lithium carbonate 300 mg Capsule 600 MG PO (20:48)
--- NOTE | 2019-09-05 20:48 | PC.NURSE ---
pt given HS meds lithium, remeron, and minipress and per pt request, PRN med visteril at this time.
[2019-09-06 06:00] VITALS: BP 123/75; PULSE 72; RESP 96; TEMP 36.6; O2SAT 96
[2019-09-06] MEDS: ziprasidone hcl 40 mg Capsule 80 MG PO ×2 (08:50→17:14)
[2019-09-06] MEDS: lithium carbonate 300 mg Capsule PO (08:50)
[2019-09-06] MEDS: levothyroxine 25 mcg Tablet PO (08:50)
[2019-09-06] MEDS: montelukast sodium 10 mg Tablet PO (08:50)
[2019-09-06 14:00] VITALS: BP 119/81; PULSE 84; RESP 17
--- NOTE | 2019-09-06 15:34 | PM.NPN ---
Subjective NPU Subjective: Interval history: The patient presents today reporting that she is accepting that she needs to go back to her mother?s place. Clearly the medication seems to be working because she is really downplaying issues that she has with her mother, although she still is stating that she does not want to go live there. We discussed a plan to work with a treatment team and see what options exist, but also talked to her mom to see what we are going to need to do to keep things well and safe for everyone there. She reports she feels like the medication is working well and that she is eating and sleeping better. Mental Status Exam MSE Comments: This is a well-nourished, well-developed, white female, with adequate dress, grooming, and eye contact, with prominent eyes secondary to the magnification of her glasses as well as some strabismus. No abnormal movements, except for mild psychomotor retardation. Cooperative with exam in no acute distress. Speech was decreased rate and volume. Mood described as better; affect guarded. Thought process, organized. Thought content: patient denied any suicidal or homicidal ideation, there were no delusions reported, she is still having some persecutory and congregational ideation, she denied any auditory or visual hallucinations. Attention and concentration are improving, and memory is unreliable, but none were formally tested. She is alert and oriented times person and place. Insight and judgment are impaired but improving. Vitals/I&O/Wt Last Vital Signs Temp 98.5 F 09/06/19 21:57 Pulse 86 09/06/19 21:57 Resp 19 H 09/06/19 21:57 BP 132/87 09/06/19 21:57 Pulse Ox 100 09/06/19 21:57 Home Medications ibuprofen 200 mg capsule 400 mg PO Q8H PRN 07/08/19 [History Confirmed 08/29/19] lithium carbonate 300 mg capsule 300 mg PO .COMPLEX #90 cap 07/08/19 [Rx Confirmed 08/29/19] mometasone 50 mcg/actuation nasal spray 2 spray INTRANASAL DAILY PRN 07/08/19 [History Confirmed 08/29/19] Geodon 60 mg PO QAM 08/29/19 [History Confirmed 08/29/19] Geodon See Rx Instructions .ROUTE .COMPLEX 08/29/19 [History Confirmed 08/29/19] PNV,calcium 78-kpdy-xeyyb acid [ Vitamin Plus Low Iron] 1 tab PO DAILY 08/29/19 [History Confirmed 08/29/19] Remeron 30 mg PO BEDTIME 08/29/19 [History Confirmed 08/29/19] cholecalciferol (vitamin D3) 50,000 unit PO Q7D 08/29/19 [History Confirmed 08/29/19] divalproex 250 mg PO BID 08/29/19 [History Confirmed 08/29/19] ipratropium bromide 2 spray INTRANASAL TID PRN 08/29/19 [History Confirmed 08/29/19] montelukast 10 mg PO DAILY 08/29/19 [History Confirmed 08/29/19] prazosin 1 mg PO BEDTIME 08/29/19 [History Confirmed 08/29/19] levothyroxine 25 mcg tablet 25 mcg PO DAILY #30 tab 09/05/19 [Rx] Active Medications Acetaminophen (Tylenol) 650 mg PO Q4H PRN PRN Reason: MILD PAIN Benztropine Mesylate (Cogentin) 1 mg PO BID PRN PRN Reason: Mild Extrapyramidal symptoms Camphor/Menthol/Phenol (Blistex) 1 applic TOPICAL Q1H PRN PRN Reason: DRYNESS Diphenhydramine HCl (Benadryl) 50 mg IM Q4H PRN PRN Reason: Severe Aggression Diphenhydramine HCl (Benadryl) 50 mg IM ONCE PRN PRN Reason: Severe Extrapyramidal Symptoms Haloperidol (Haldol) 5 mg PO Q4H PRN PRN Reason: AGITATION Haloperidol Lactate (Haldol Inj) 5 mg IM Q4H PRN PRN Reason: Severe Aggression Hydroxyzine Pamoate (Vistaril) 50 mg PO Q6H PRN PRN Reason: ANXIETY Last Admin: 09/05/19 20:48 Dose: 50 mg Documented by: Ibuprofen (Motrin) 400 mg PO Q8H PRN PRN Reason: MODERATE PAIN Levothyroxine Sodium (Synthroid) 25 mcg PO DAILY [facility] Last Admin: 09/06/19 08:50 Dose: 25 mcg Documented by: [place] Carbonate (Eskalith) 600 mg PO BEDTIME [facility] Last Admin: 09/06/19 22:49 Dose: 600 mg Documented by: [place] Carbonate (Eskalith) 300 mg PO DAILY [facility] Last Admin: 09/06/19 08:50 Dose: 300 mg Documented by: Loperamide HCl (Imodium Capsule) 2 mg PO Q6H PRN PRN Reason: DIARRHEA Mirtazapine (Remeron) 30 mg PO BEDTIME [facility] Last Admin: 09/06/19 22:49 Dose: 30 mg Documented by: Montelukast Sodium (Singulair) 10 mg PO DAILY [facility] Last Admin: 09/06/19 08:50 Dose: 10 mg Documented by: Nicotine (Nicoderm 21 Mg Patch) 1 patch TRANSDERMA DAILY PRN PRN Reason: NICOTINE WITHDRAWAL Nicotine Polacrilex ([place]oret[place]) 2 mg BUCCAL Q2H PRN PRN Reason: NICOTINE WITHDRAWAL Non-Formulary Medication (Ipratropium [place]) 2 spray INTRANASAL TID PRN PRN Reason: unknown Non-Formulary Medication (Mometasone [Nasonex]) 2 spray INTRANASAL DAILY PRN PRN Reason: unknown Non-Formulary Medication (Pnv,Calcium 14-Cqrr-Mjnkf Acid [ Vitamin Plus Low Iron]) 1 tab PO DAILY [facility] Last Admin: 09/02/19 07:57 Dose: Not Given Documented by: Olanzapine (Zyprexa Zydis) 5 mg PO Q4H PRN PRN Reason: Agitation/Psychosis Last Admin: 09/05/19 20:48 Dose: 5 mg Documented by: Ondansetron HCl (Zofran) 4 mg PO Q6H PRN PRN Reason: NAUSEA AND VOMITING Prazosin HCl (Minipress) 1 mg PO BEDTIME [facility] Last Admin: 09/06/19 22:51 Dose: 1 mg Documented by: Ziprasidone (Geodon) 80 mg PO BID [facility] Last Admin: 09/06/19 17:14 Dose: 80 mg Documented by: Data NPU : 08/29/19 15:08 08/29/19 15:08 A&P Assessment and plan (1) Acute psychosis: Status: Acute Code(s): F23 - Brief psychotic disorder (2) Moderate intellectual disabilities: Status: Acute Code(s): F71 - Moderate intellectual disabilities (3) Autism spectrum disorder: This is a 24-year-old white female with psychosis, intellectual disabilities and behavioral issues who presents acutely psychotic and adjusting to the medications being prescribed. 1. Continue current medication. 2. Encourage individual, group and milieu therapy. 3. Continue to 15-minute checks for safety. Status: Chronic Code(s): F84.0 - Autistic disorder (4) Intermittent explosive disorder: Status: Chronic Code(s): F63.81 - Intermittent explosive disorder Involuntary Hold Information 96 Hour Hold: 96 Hour Involuntary Admission: Yes 96 Hour Hold Ending Date: 09/04/19 96 Hour Hold Ending Time: 15:20 Attestations NPU Medical Necessity Statement*: Inpatient hospitalization is medically necessary and the clinically appropriate intervention at this time. We will monitor medications and adjust as indicated. Likely length of stay 2-4 days. 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
[2019-09-06 21:57] VITALS: BP 132/87; PULSE 86; RESP 19; TEMP 36.9; O2SAT 100
[2019-09-06] MEDS: mirtazapine 30 mg Tablet PO (22:49)
[2019-09-06] MEDS: lithium carbonate 300 mg Capsule 600 MG PO (22:49)
[2019-09-06] MEDS: prazosin 1 mg Capsule PO (22:51)
[2019-09-07 06:00] VITALS: BP 124/81; PULSE 95; RESP 17; TEMP 37.1; O2SAT 100
[2019-09-07] MEDS: levothyroxine 25 mcg Tablet PO (08:17)
[2019-09-07] MEDS: ziprasidone hcl 40 mg Capsule 80 MG PO ×2 (08:17→17:46)
[2019-09-07] MEDS: montelukast sodium 10 mg Tablet PO (08:17)
[2019-09-07] MEDS: lithium carbonate 300 mg Capsule PO (08:17)
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
[2019-09-07 14:00] VITALS: BP 104/73; PULSE 74; RESP 18; TEMP 36.4; O2SAT 99
[2019-09-07] MEDS: lithium carbonate 300 mg Capsule 600 MG PO (21:08)
[2019-09-07] MEDS: hyDROXYzine 25 mg Capsule 50 MG PO (21:08)
[2019-09-07] MEDS: mirtazapine 30 mg Tablet PO (21:08)
--- NOTE | 2019-09-07 21:08 | PC.NURSE ---
HS MEDS LITHIUM, REMERON, AND MINIPRESS AND PRN MED VISTERIL GIVEN AT THIS TIME.
[2019-09-07 21:16] VITALS: BP 117/79; PULSE 74; RESP 15; TEMP 36.9; O2SAT 99
[2019-09-08] MEDS: prazosin 1 mg Capsule PO ×2 (01:29→21:05)
[2019-09-08 05:18] VITALS: BP 111/71; PULSE 87; RESP 16; TEMP 37.3; O2SAT 98
[2019-09-08] MEDS: ziprasidone hcl 40 mg Capsule 80 MG PO ×2 (08:53→17:24)
[2019-09-08] MEDS: lithium carbonate 300 mg Capsule PO (08:53)
[2019-09-08] MEDS: montelukast sodium 10 mg Tablet PO (08:53)
[2019-09-08] MEDS: levothyroxine 25 mcg Tablet PO (08:53)
[2019-09-08] MEDS: acetaminophen 325 mg Tablet 650 MG PO (13:43)
[2019-09-08 14:00] VITALS: BP 145/83; PULSE 83; RESP 20; TEMP 36.9; O2SAT 95
--- NOTE | 2019-09-08 16:28 | PM.NPN ---
Subjective NPU Subjective: Interval history: Jnia presents today reporting that he is somewhat scared about going home. He continued to talk about not understanding why her mom would stay here movements less. Treatment team recessive mom and mom reports that this is baseline or at least is not baseline is she talks about it so perseveratively. She expressed verbal concern about whether or not she is ready to come home stating that this seems to be very far from baseline. We discussed the risks benefits and alternatives of initiating Invega, given that she reportedly has struggled with Abilify and that would give us some leverage against the illness through a long-acting injectable and she understood and agreed to proceed as is documented in this note. Mental Status Exam MSE Comments: This is a well-nourished, well-developed, white female, with adequate dress, grooming, and eye contact with very prominent eyes through the magnification of her glasses with some strabismus notable. No abnormal movements except for resolving psychomotor retardation. More cooperative with exam in no acute distress. Speech was decreased rate and volume but improving. Mood described as better; affect congruent and less odd. Thought process, more organized. Thought content: patient denied any suicidal or homicidal ideation, there were no delusions reported and her persecutory and hyper-mormonism thinking seems to be improving. She denied any auditory or visual hallucinations. Attention and concentration are improving, and memory is appearing more reliable but none were formally tested. Alert and oriented times person and place. Insight and judgment are limited but improving. Vitals/I&O/Wt Last Vital Signs Temp 98.4 F 09/08/19 22:00 Pulse 84 09/08/19 22:00 Resp 17 09/08/19 22:00 BP 128/76 09/08/19 22:00 Pulse Ox 100 09/08/19 22:00 Weight last 48 hrs Weight 71.384 kg Home Medications ibuprofen 200 mg capsule 400 mg PO Q8H PRN 07/08/19 [History Confirmed 08/29/19] lithium carbonate 300 mg capsule 300 mg PO .COMPLEX #90 cap 07/08/19 [Rx Confirmed 08/29/19] mometasone 50 mcg/actuation nasal spray 2 spray INTRANASAL DAILY PRN 07/08/19 [History Confirmed 08/29/19] Geodon 60 mg PO QAM 08/29/19 [History Confirmed 08/29/19] Geodon See Rx Instructions .ROUTE .COMPLEX 08/29/19 [History Confirmed 08/29/19] PNV,calcium 17-wdtg-amvwf acid [ Vitamin Plus Low Iron] 1 tab PO DAILY 08/29/19 [History Confirmed 08/29/19] Remeron 30 mg PO BEDTIME 08/29/19 [History Confirmed 08/29/19] cholecalciferol (vitamin D3) 50,000 unit PO Q7D 08/29/19 [History Confirmed 08/29/19] divalproex 250 mg PO BID 08/29/19 [History Confirmed 08/29/19] ipratropium bromide 2 spray INTRANASAL TID PRN 08/29/19 [History Confirmed 08/29/19] montelukast 10 mg PO DAILY 08/29/19 [History Confirmed 08/29/19] prazosin 1 mg PO BEDTIME 08/29/19 [History Confirmed 08/29/19] levothyroxine 25 mcg tablet 25 mcg PO DAILY #30 tab 09/05/19 [Rx] Active Medications Acetaminophen (Tylenol) 650 mg PO Q4H PRN PRN Reason: MILD PAIN Last Admin: 09/08/19 13:43 Dose: 650 mg Documented by: Benztropine Mesylate (Cogentin) 1 mg PO BID PRN PRN Reason: Mild Extrapyramidal symptoms Camphor/Menthol/Phenol (Blistex) 1 applic TOPICAL Q1H PRN PRN Reason: DRYNESS Diphenhydramine HCl (Benadryl) 50 mg IM Q4H PRN PRN Reason: Severe Aggression Diphenhydramine HCl (Benadryl) 50 mg IM ONCE PRN PRN Reason: Severe Extrapyramidal Symptoms Haloperidol (Haldol) 5 mg PO Q4H PRN PRN Reason: AGITATION Haloperidol Lactate (Haldol Inj) 5 mg IM Q4H PRN PRN Reason: Severe Aggression Hydroxyzine Pamoate (Vistaril) 50 mg PO Q6H PRN PRN Reason: ANXIETY Last Admin: 09/08/19 21:05 Dose: 50 mg Documented by: Ibuprofen (Motrin) 400 mg PO Q8H PRN PRN Reason: MODERATE PAIN Levothyroxine Sodium (Synthroid) 25 mcg PO DAILY [facility] Last Admin: 09/08/19 08:53 Dose: 25 mcg Documented by: [place] Carbonate (Eskalith) 600 mg PO BEDTIME [facility] Last Admin: 09/08/19 21:05 Dose: 600 mg Documented by: [place] Carbonate (Eskalith) 300 mg PO DAILY [facility] Last Admin: 09/08/19 08:53 Dose: 300 mg Documented by: Loperamide HCl (Imodium Capsule) 2 mg PO Q6H PRN PRN Reason: DIARRHEA Mirtazapine (Remeron) 30 mg PO BEDTIME [facility] Last Admin: 09/08/19 21:05 Dose: 30 mg Documented by: Montelukast Sodium (Singulair) 10 mg PO DAILY [facility] Last Admin: 09/08/19 08:53 Dose: 10 mg Documented by: Nicotine (Nicoderm 21 Mg Patch) 1 patch TRANSDERMA DAILY PRN PRN Reason: NICOTINE WITHDRAWAL Nicotine Polacrilex (Nicorette) 2 mg BUCCAL Q2H PRN PRN Reason: NICOTINE WITHDRAWAL Non-Formulary Medication (Ipratropium [place]) 2 spray INTRANASAL TID PRN PRN Reason: unknown Non-Formulary Medication (Mometasone [Nasonex]) 2 spray INTRANASAL DAILY PRN PRN Reason: unknown Non-Formulary Medication (Pnv,Calcium 34-Sioo-Tvjlk Acid [ Vitamin Plus Low Iron]) 1 tab PO DAILY [facility] Last Admin: 09/02/19 07:57 Dose: Not Given Documented by: Olanzapine (Zyprexa Zydis) 5 mg PO Q4H PRN PRN Reason: Agitation/Psychosis Last Admin: 09/05/19 20:48 Dose: 5 mg Documented by: Ondansetron HCl (Zofran) 4 mg PO Q6H PRN PRN Reason: NAUSEA AND VOMITING Prazosin HCl (Minipress) 1 mg PO BEDTIME [facility] Last Admin: 09/08/19 21:05 Dose: 1 mg Documented by: Ziprasidone (Geodon) 80 mg PO BID [facility] Last Admin: 09/08/19 17:24 Dose: 80 mg Documented by: Data NPU : 08/29/19 15:08 08/29/19 15:08 A&P Assessment and plan (1) Acute psychosis: This is a 24-year-old white female with psychosis, intellectual disabilities and behavioral issues who presents acutely psychotic and adjusting to the medications being prescribed. 1. Continue current medication. 2. Encourage individual, group and milieu therapy. 3. Continue to 15-minute checks for safety. 4. Start invega 6 mg po qam in the morning Status: Acute (2) Moderate intellectual disabilities: Status: Acute (3) Autism spectrum disorder: Status: Chronic (4) Intermittent explosive disorder: Status: Chronic Involuntary Hold Information 96 Hour Hold: 96 Hour Involuntary Admission: Yes 96 Hour Hold Ending Date: 09/04/19 96 Hour Hold Ending Time: 15:20 Attestations NPU Medical Necessity Statement*: Inpatient hospitalization is medically necessary and the clinically appropriate intervention at this time. We will monitor medications and adjust as indicated. Likely length of stay 2-4 days. 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
[2019-09-08] MEDS: lithium carbonate 300 mg Capsule 600 MG PO (21:05)
[2019-09-08] MEDS: hyDROXYzine 25 mg Capsule 50 MG PO (21:05)
[2019-09-08] MEDS: mirtazapine 30 mg Tablet PO (21:05)
--- NOTE | 2019-09-08 21:05 | PC.NURSE ---
HS MEDS LITHIUM, REMERON, AND MINIPRESS WELL PRN VISTERIL GIVEN AT THIS TIME.
[2019-09-08 22:00] VITALS: BP 128/76; PULSE 84; RESP 17; TEMP 36.9; O2SAT 100
[2019-09-09 06:00] VITALS: BP 128/56; PULSE 103; RESP 17; TEMP 37.1; O2SAT 97
[2019-09-09] MEDS: montelukast sodium 10 mg Tablet PO (08:46)
[2019-09-09] MEDS: lithium carbonate 300 mg Capsule PO (08:46)
[2019-09-09] MEDS: levothyroxine 25 mcg Tablet PO (08:46)
[2019-09-09] MEDS: ziprasidone hcl 40 mg Capsule 80 MG PO ×2 (11:02→18:00)
--- NOTE | 2019-09-09 13:37 | PM.NPN ---
Subjective NPU Subjective: Interval history: The patient presents today with really extensive conversation about different things that are clearly not true. 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 She went on to say that she had actually taken parts from the different devices and made other things that were amazing inventions, like an invisibility shield, and a freeze ray or a device that can freeze you. She went on to say that she could sing, and she sang and it was quite out of yu. She reports that she is rich and all kinds of other things. She reports that the medication seems to be helping. She denied any other issues. Mental Status Exam MSE Comments: This is a well-nourished, well-developed, white female, with adequate dress, grooming, and eye contact. No abnormal movements. Cooperative with exam in no acute distress. Speech was increased rate and volume. Mood described as pretty good/better; affect congruent. Thought process, organized. Thought content: patient denied any suicidal or homicidal ideation, there were no delusions reported but she clearly had some grandiose delusions, she denied any auditory or visual hallucinations. Attention and concentration appeared intact, and memory was unreliable, but none were formally tested. She is alert and oriented times person and place. Insight and judgment are impaired and intellectual ability is impaired. Vitals/I&O/Wt Last Vital Signs Temperature: 98.8. Pulse: 103. Respirations: 17. Pulse Ox: 97%. Blood pressure was 128/56. Data NPU : 08/29/19 15:08 08/29/19 15:08 A&P Additional A&P Information (1) Acute psychosis: This is a 24-year-old white female with psychosis, intellectual disabilities and behavioral issues who presents acutely psychotic and adjusting to the medications being prescribed. 1. Continue current medication. 2. Encourage individual, group and milieu therapy. 3. Continue to 15-minute checks for safety. 4. Start invega 6 mg po qam in the morning (2) Moderate intellectual disabilities: (3) Autism spectrum disorder: (4) Intermittent explosive disorder: Involuntary Hold Information 96 Hour Hold: 96 Hour Involuntary Admission: Yes 96 Hour Hold Ending Date: 09/04/19 96 Hour Hold Ending Time: 15:20 Attestations NPU Medical Necessity Statement*: Inpatient hospitalization is medically necessary and the clinically appropriate intervention at this time. We will monitor medications and adjust as indicated. Likely length of stay 2-4 days. Coding Level of Care Code Acute Child Care Coordinator for Dev Guzmán
[2019-09-09 14:00] VITALS: BP 117/77; PULSE 93; RESP 18; TEMP 36.7
[2019-09-09] MEDS: mirtazapine 30 mg Tablet PO (20:12)
[2019-09-09] MEDS: prazosin 1 mg Capsule PO (20:12)
[2019-09-09] MEDS: lithium carbonate 300 mg Capsule 600 MG PO (20:12)
[2019-09-09] MEDS: hyDROXYzine 25 mg Capsule 50 MG PO (20:12)
[2019-09-09 20:37] VITALS: BP 122/81; PULSE 79; RESP 16; TEMP 36.9; O2SAT 100
--- NOTE | 2019-09-09 21:09 | PC.NURSE ---
Pt given scheduled HS meds Elrosa, Remeron, and Minipress as well as PRN Visteril at 2011.
[2019-09-10 06:00] VITALS: BP 117/84; PULSE 78; RESP 18; TEMP 36.4; O2SAT 100
[2019-09-10] MEDS: ziprasidone hcl 40 mg Capsule 80 MG PO ×2 (08:00→17:53)
[2019-09-10] MEDS: levothyroxine 25 mcg Tablet PO (08:01)
[2019-09-10] MEDS: montelukast sodium 10 mg Tablet PO (08:01)
[2019-09-10] MEDS: lithium carbonate 300 mg Capsule PO (08:01)
[2019-09-10] MEDS: nicotine 2 mg Gum BUCCAL (08:02)
--- NOTE | 2019-09-10 11:54 | P.PN_ITS ---
Subjective NPU Subjective: Interval history: Jina presents today continuing to have clear psychotic symptoms. We spoke with her mother and her mother had clarity that this is not baseline; she was never spewing these statements about these bizarre beliefs, talking about having created songs, and things like that. She is still believing her mom is doing things against her. We discussed the risks, benefits, and alternatives of introducing Invega, and she understood and agreed to proceed as is documented in this note. Mental Status Exam MSE Comments: This is a well-nourished, well-developed, white female, with adequate dress, grooming, and eye contact. No abnormal movements, except for mild but improving psychomotor retardation. Cooperative with exam in no acute distress. Speech was decreased rate and volume, but improving. Mood described as pretty good; affect odd. Thought process, organized. Thought content: patient denied any suicidal or homicidal ideation, there were no delusions reported or noted, patient denied any auditory or visual hallucinations. Attention and concentration appeared intact, and memory is not reliable, but none were formally tested. She is alert and oriented to person and place. Insight and judgment are impaired. Intellectual ability is impaired. Vitals/I&O/Wt Last Vital Signs Temp 98.5 F 09/10/19 20:14 Pulse 98 09/10/19 20:14 Resp 17 09/10/19 20:14 BP 108/75 09/10/19 20:14 Pulse Ox 98 09/10/19 20:14 Home Medications ibuprofen 200 mg capsule 400 mg PO Q8H PRN 07/08/19 [History Confirmed 08/29/19] lithium carbonate 300 mg capsule 300 mg PO .COMPLEX #90 cap 07/08/19 [Rx Confirmed 08/29/19] mometasone 50 mcg/actuation nasal spray 2 spray INTRANASAL DAILY PRN 07/08/19 [History Confirmed 08/29/19] Geodon 60 mg PO QAM 08/29/19 [History Confirmed 08/29/19] Geodon See Rx Instructions .ROUTE .COMPLEX 08/29/19 [History Confirmed 08/29/19] PNV,calcium 06-daqd-kvkzc acid [ Vitamin Plus Low Iron] 1 tab PO DAILY 08/29/19 [History Confirmed 08/29/19] Remeron 30 mg PO BEDTIME 08/29/19 [History Confirmed 08/29/19] cholecalciferol (vitamin D3) 50,000 unit PO Q7D 08/29/19 [History Confirmed 08/29/19] divalproex 250 mg PO BID 08/29/19 [History Confirmed 08/29/19] ipratropium bromide 2 spray INTRANASAL TID PRN 08/29/19 [History Confirmed 08/29/19] montelukast 10 mg PO DAILY 08/29/19 [History Confirmed 08/29/19] prazosin 1 mg PO BEDTIME 08/29/19 [History Confirmed 08/29/19] levothyroxine 25 mcg tablet 25 mcg PO DAILY #30 tab 09/05/19 [Rx] Active Medications Acetaminophen (Tylenol) 650 mg PO Q4H PRN PRN Reason: MILD PAIN Last Admin: 09/08/19 13:43 Dose: 650 mg Documented by: Benztropine Mesylate (Cogentin) 1 mg PO BID PRN PRN Reason: Mild Extrapyramidal symptoms Camphor/Menthol/Phenol (Blistex) 1 applic TOPICAL Q1H PRN PRN Reason: DRYNESS Diphenhydramine HCl (Benadryl) 50 mg IM Q4H PRN PRN Reason: Severe Aggression Diphenhydramine HCl (Benadryl) 50 mg IM ONCE PRN PRN Reason: Severe Extrapyramidal Symptoms Haloperidol (Haldol) 5 mg PO Q4H PRN PRN Reason: AGITATION Haloperidol Lactate (Haldol Inj) 5 mg IM Q4H PRN PRN Reason: Severe Aggression Hydroxyzine Pamoate (Vistaril) 50 mg PO Q6H PRN PRN Reason: ANXIETY Last Admin: 09/09/19 20:12 Dose: 50 mg Documented by: Ibuprofen (Motrin) 400 mg PO Q8H PRN PRN Reason: MODERATE PAIN Levothyroxine Sodium (Synthroid) 25 mcg PO DAILY [facility] Last Admin: 09/10/19 08:01 Dose: 25 mcg Documented by: [place] Carbonate (Eskalith) 600 mg PO BEDTIME [facility] Last Admin: 09/10/19 20:37 Dose: 600 mg Documented by: [place] Carbonate (Eskalith) 300 mg PO DAILY [facility] Last Admin: 09/10/19 08:01 Dose: 300 mg Documented by: Loperamide HCl (Imodium Capsule) 2 mg PO Q6H PRN PRN Reason: DIARRHEA Mirtazapine (Remeron) 30 mg PO BEDTIME [facility] Last Admin: 09/10/19 20:37 Dose: 30 mg Documented by: Montelukast Sodium (Singulair) 10 mg PO DAILY [facility] Last Admin: 09/10/19 08:01 Dose: 10 mg Documented by: Nicotine (Nicoderm 21 Mg Patch) 1 patch TRANSDERMA DAILY PRN PRN Reason: NICOTINE WITHDRAWAL Nicotine Polacrilex (Nicorette) 2 mg BUCCAL Q2H PRN PRN Reason: NICOTINE WITHDRAWAL Last Admin: 09/10/19 08:02 Dose: 2 mg Documented by: Non-Formulary Medication (Ipratropium [place]) 2 spray INTRANASAL TID PRN PRN Reason: unknown Non-Formulary Medication (Mometasone [Nasonex]) 2 spray INTRANASAL DAILY PRN PRN Reason: unknown Non-Formulary Medication (Pnv,Calcium 85-Zuwy-Xeiso Acid [ Vitamin Plus Low Iron]) 1 tab PO DAILY [facility] Last Admin: 09/02/19 07:57 Dose: Not Given Documented by: Olanzapine (Zyprexa Zydis) 5 mg PO Q4H PRN PRN Reason: Agitation/Psychosis Last Admin: 09/05/19 20:48 Dose: 5 mg Documented by: Ondansetron HCl (Zofran) 4 mg PO Q6H PRN PRN Reason: NAUSEA AND VOMITING Prazosin HCl (Minipress) 1 mg PO BEDTIME [facility] Last Admin: 09/10/19 20:37 Dose: 1 mg Documented by: Ziprasidone (Geodon) 80 mg PO BID [facility] Last Admin: 09/10/19 17:53 Dose: 80 mg Documented by: Data NPU : 08/29/19 15:08 08/29/19 15:08 A&P Additional A&P Information (1) Acute psychosis: This is a 24-year-old white female with psychosis, intellectual disabilities and behavioral issues who presents acutely psychotic and adjusting to the medications being prescribed. 1. Continue current medication. 2. Encourage individual, group and milieu therapy. 3. Continue to 15-minute checks for safety. 4. Start invega 6 mg po qam in the morning (2) Moderate intellectual disabilities: (3) Autism spectrum disorder: (4) Intermittent explosive disorder: Involuntary Hold Information 96 Hour Hold: 96 Hour Involuntary Admission: Yes 96 Hour Hold Ending Date: 09/04/19 96 Hour Hold Ending Time: 15:20 Attestations NPU Medical Necessity Statement*: Inpatient hospitalization is medically necessary and the clinically appropriate intervention at this time. We will monitor me dications and adjust as indicated. Likely length of stay 2-4 days. Coding Level of Care Code Acute Retail Sales Clerk for Dev Guzmán
[2019-09-10 14:00] VITALS: BP 121/77; PULSE 94; RESP 18; TEMP 37; O2SAT 100
[2019-09-10 20:14] VITALS: BP 108/75; PULSE 98; RESP 17; TEMP 36.9; O2SAT 98
[2019-09-10] MEDS: lithium carbonate 300 mg Capsule 600 MG PO (20:37)
[2019-09-10] MEDS: prazosin 1 mg Capsule PO (20:37)
[2019-09-10] MEDS: mirtazapine 30 mg Tablet PO (20:37)
[2019-09-11 06:00] VITALS: BP 108/75; PULSE 98; RESP 17; TEMP 36.9; O2SAT 98
[2019-09-11 06:33] VITALS: BP 110/76; PULSE 76; RESP 16; TEMP 36.8; O2SAT 96
[2019-09-11] MEDS: paliperidone ER 6 mg Tablet PO (08:43)
[2019-09-11] MEDS: montelukast sodium 10 mg Tablet PO (08:44)
[2019-09-11] MEDS: ziprasidone hcl 40 mg Capsule 80 MG PO ×2 (08:44→16:49)
[2019-09-11] MEDS: lithium carbonate 300 mg Capsule PO (08:44)
[2019-09-11] MEDS: levothyroxine 25 mcg Tablet PO (08:44)
--- NOTE | 2019-09-11 10:09 | PC.SOCIAL ---
important message for medicare provided via phone with guardian.
[2019-09-11 14:00] VITALS: BP 117/82; PULSE 105; RESP 18; TEMP 36.9; O2SAT 95
--- NOTE | 2019-09-11 14:56 | P.PN_ITS ---
Subjective NPU Subjective: Interval history: Jina presents today with no reports of issues regarding the initiation of Invega. She continues to be overheard talking to herself and laughing. She continues to be very fixated on her mother and how her mother is involved and negative things in conjunction with her life. She has no beliefs that any of this can be related to any illness. She continued to talk about special abilities and talents which were clearly not existent and not real. She is eating and sleeping well. Mental Status Exam MSE Comments: This is a well-nourished, well-developed, white female, with adequate dress, grooming, and eye contact. No abnormal movements, except for mild but improving psychomotor retardation. Cooperative with exam in no acute distress. Speech was decreased rate and volume, but improving. Mood described as OK; affect odd. Thought process, organized. Thought content: patient denied any suicidal or homicidal ideation, there were no delusions reported, Patient has clear persecutory and paranoid delusions, patient denied any auditory or visual hallucinations,But is overheard speaking to self. Attention and concentration appeared intact, and memory is not reliable, but none were formally tested. She is alert and oriented to person and place. Insight and judgment are impaired. Intellectual ability is impaired. Vitals/I&O/Wt Last Vital Signs Temp 98.3 F 09/11/19 06:33 Pulse 76 09/11/19 06:33 Resp 16 09/11/19 06:33 BP 110/76 09/11/19 06:33 Pulse Ox 96 09/11/19 06:33 Home Medications ibuprofen 200 mg capsule 400 mg PO Q8H PRN 07/08/19 [History Confirmed 08/29/19] lithium carbonate 300 mg capsule 300 mg PO .COMPLEX #90 cap 07/08/19 [Rx Confirmed 08/29/19] mometasone 50 mcg/actuation nasal spray 2 spray INTRANASAL DAILY PRN 07/08/19 [History Confirmed 08/29/19] Geodon 60 mg PO QAM 08/29/19 [History Confirmed 08/29/19] Geodon See Rx Instructions .ROUTE .COMPLEX 08/29/19 [History Confirmed 08/29/19] PNV,calcium 97-wyiz-bvxzw acid [ Vitamin Plus Low Iron] 1 tab PO DAILY 08/29/19 [History Confirmed 08/29/19] Remeron 30 mg PO BEDTIME 08/29/19 [History Confirmed 08/29/19] cholecalciferol (vitamin D3) 50,000 unit PO Q7D 08/29/19 [History Confirmed 08/29/19] divalproex 250 mg PO BID 08/29/19 [History Confirmed 08/29/19] ipratropium bromide 2 spray INTRANASAL TID PRN 08/29/19 [History Confirmed 08/29/19] montelukast 10 mg PO DAILY 08/29/19 [History Confirmed 08/29/19] prazosin 1 mg PO BEDTIME 08/29/19 [History Confirmed 08/29/19] levothyroxine 25 mcg tablet 25 mcg PO DAILY #30 tab 09/05/19 [Rx] Active Medications Acetaminophen (Tylenol) 650 mg PO Q4H PRN PRN Reason: MILD PAIN Last Admin: 09/08/19 13:43 Dose: 650 mg Documented by: Benztropine Mesylate (Cogentin) 1 mg PO BID PRN PRN Reason: Mild Extrapyramidal symptoms Camphor/Menthol/Phenol (Blistex) 1 applic TOPICAL Q1H PRN PRN Reason: DRYNESS Diphenhydramine HCl (Benadryl) 50 mg IM Q4H PRN PRN Reason: Severe Aggression Diphenhydramine HCl (Benadryl) 50 mg IM ONCE PRN PRN Reason: Severe Extrapyramidal Symptoms Haloperidol (Haldol) 5 mg PO Q4H PRN PRN Reason: AGITATION Haloperidol Lactate (Haldol Inj) 5 mg IM Q4H PRN PRN Reason: Severe Aggression Hydroxyzine Pamoate (Vistaril) 50 mg PO Q6H PRN PRN Reason: ANXIETY Last Admin: 09/09/19 20:12 Dose: 50 mg Documented by: Ibuprofen (Motrin) 400 mg PO Q8H PRN PRN Reason: MODERATE PAIN Levothyroxine Sodium (Synthroid) 25 mcg PO DAILY [facility] Last Admin: 09/11/19 08:44 Dose: 25 mcg Documented by: [place] Carbonate (Eskalith) 600 mg PO BEDTIME [facility] Last Admin: 09/10/19 20:37 Dose: 600 mg Documented by: [place] Carbonate (Eskalith) 300 mg PO DAILY [facility] Last Admin: 09/11/19 08:44 Dose: 300 mg Documented by: Loperamide HCl (Imodium Capsule) 2 mg PO Q6H PRN PRN Reason: DIARRHEA Mirtazapine (Remeron) 30 mg PO BEDTIME [facility] Last Admin: 09/10/19 20:37 Dose: 30 mg Documented by: Montelukast Sodium (Singulair) 10 mg PO DAILY [facility] Last Admin: 09/11/19 08:44 Dose: 10 mg Documented by: Nicotine (Nicoderm 21 Mg Patch) 1 patch TRANSDERMA DAILY PRN PRN Reason: NICOTINE WITHDRAWAL Nicotine Polacrilex (Nicorette) 2 mg BUCCAL Q2H PRN PRN Reason: NICOTINE WITHDRAWAL Last Admin: 09/10/19 08:02 Dose: 2 mg Documented by: Non-Formulary Medication (Ipratropium [place]) 2 spray INTRANASAL TID PRN PRN Reason: unknown Non-Formulary Medication (Mometasone [Nasonex]) 2 spray INTRANASAL DAILY PRN PRN Reason: unknown Non-Formulary Medication (Pnv,Calcium 75-Gekv-Qezeg Acid [ Vitamin Plus Low Iron]) 1 tab PO DAILY [facility] Last Admin: 09/02/19 07:57 Dose: Not Given Documented by: Olanzapine (Zyprexa Zydis) 5 mg PO Q4H PRN PRN Reason: Agitation/Psychosis Last Admin: 09/05/19 20:48 Dose: 5 mg Documented by: Ondansetron HCl (Zofran) 4 mg PO Q6H PRN PRN Reason: NAUSEA AND VOMITING Prazosin HCl (Minipress) 1 mg PO BEDTIME [facility] Last Admin: 09/10/19 20:37 Dose: 1 mg Documented by: Ziprasidone (Geodon) 80 mg PO BID [facility] Last Admin: 09/11/19 08:44 Dose: 80 mg Documented by: Data NPU : 08/29/19 15:08 08/29/19 15:08 A&P Additional A&P Information 1) Acute psychosis: This is a 24-year-old white female with psychosis, intellectual disabilities and behavioral issues who presents acutely psychotic and adjusting to the medications being prescribed. 1. Continue current medication. 2. Encourage individual, group and milieu therapy. 3. Continue to 15-minute checks for safety. (2) Moderate intellectual disabilities: (3) Autism spectrum disorder: (4) Intermittent explosive disorder: Involuntary Hold Information 96 Hour Hold: 96 Hour Involuntary Admission: Yes 96 Hour Hold Ending Date: 09/04/19 96 Hour Hold Ending Time: 15:20 Attestations NPU Medical Necessity Statement*: Inpatient hospitalization is medically necessary and the clinically appropriate intervention at this time. We will monitor medications and adjust as indicated. Likely length of stay 2-4 days. Coding Level of Care Code Acute Commercial Decorator for Dev Guzmán
[2019-09-11] MEDS: prazosin 1 mg Capsule PO (20:15)
[2019-09-11] MEDS: mirtazapine 30 mg Tablet PO (20:15)
[2019-09-11] MEDS: lithium carbonate 300 mg Capsule 600 MG PO (20:15)
[2019-09-11 21:02] VITALS: BP 116/79; PULSE 83; RESP 19; TEMP 36.8; O2SAT 100
[2019-09-12 06:00] VITALS: BP 121/76; PULSE 110; RESP 19; TEMP 37.1; O2SAT 100
[2019-09-12] MEDS: lithium carbonate 300 mg Capsule PO (08:24)
[2019-09-12] MEDS: levothyroxine 25 mcg Tablet PO (08:24)
[2019-09-12] MEDS: paliperidone ER 6 mg Tablet PO (08:24)
[2019-09-12] MEDS: ziprasidone hcl 40 mg Capsule 80 MG PO ×2 (08:24→17:01)
[2019-09-12] MEDS: montelukast sodium 10 mg Tablet PO (08:24)
--- NOTE | 2019-09-12 12:10 | P.PN_ITS ---
Subjective NPU Subjective: Interval history: Jina presented today reporting that she is feeling better. She was very focused on some story about her mom not really being her guardian and that she had somehow dismissed her as a guardian. I explained to her that by definition a guardian is something that is appointed and that the only way to get a different guardian is for a court order. She r eported that she provided evidence that the cook helper juice of things that were going on that she did not want to that were the reason why the guardian was switched which is not accurate. She denied any problems with the medication. Mental Status Exam MSE Comments: This is a well-nourished, well-developed, white female, with adequate dress, grooming, and eye contact. No abnormal movements, except for mild but improving psychomotor retardation. Cooperative with exam in no acute distress. Speech was more normal rate and volume, but improving. Mood described as pretty good; affect odd. Thought process, organized. Thought content: patient denied any suicidal or homicidal ideation, there were no delusions reported, patient has clear persecutory and paranoid delusions but a little less focused on them, patient denied any auditory or visual hallucinations,But is overheard speaking to self. Attention and concentration appeared intact, and memory is not reliable, but none were formally tested. She is alert and oriented to person and place. Insight and judgment are impaired. Intellectual ability is impaired. Vitals/I&O/Wt Last Vital Signs Temperature 98.8, pulse 110, respirations 19, pulse ox 100%, blood pressure 121/79. Data NPU : 08/29/19 15:08 08/29/19 15:08 A&P Additional A&P Information 1) Acute psychosis: This is a 24-year-old white female with psychosis, intellectual disabilities and behavioral issues who presents acutely psychotic and adjusting to the medications being prescribed. 1. Continue current medication. 2. Encourage individual, group and milieu therapy. 3. Continue to 15-minute checks for safety. (2) Moderate intellectual disabilities: (3) Autism spectrum disorder: (4) Intermittent explosive disorder: Involuntary Hold Information 96 Hour Hold: 96 Hour Involuntary Admission: Yes 96 Hour Hold Ending Date: 09/04/19 96 Hour Hold Ending Time: 15:20 Attestations NPU Medical Necessity Statement*: Inpatient hospitalization is medically necessary and the clinically appropriate intervention at this time. We will monitor medications and adjust as indicated. Likely length of stay 2-4 days. Coding Level of Care Code Acute Plant Machinist for Dev Guzmán
[2019-09-12 14:00] VITALS: BP 124/77; PULSE 91; RESP 17; TEMP 36.8; O2SAT 100
[2019-09-12] MEDS: mirtazapine 30 mg Tablet PO (20:54)
[2019-09-12] MEDS: lithium carbonate 300 mg Capsule 600 MG PO (20:55)
[2019-09-12] MEDS: prazosin 1 mg Capsule PO (20:55)
[2019-09-12 21:38] VITALS: BP 122/85; PULSE 95; RESP 17; TEMP 36.7; O2SAT 99
[2019-09-13 06:00] VITALS: BP 117/82; PULSE 97; RESP 18; TEMP 37.1; O2SAT 98
[2019-09-13] MEDS: lithium carbonate 300 mg Capsule PO (08:37)
[2019-09-13] MEDS: ziprasidone hcl 40 mg Capsule 80 MG PO ×2 (08:37→17:02)
[2019-09-13] MEDS: paliperidone ER 6 mg Tablet PO (08:37)
[2019-09-13] MEDS: levothyroxine 25 mcg Tablet PO (08:37)
[2019-09-13] MEDS: montelukast sodium 10 mg Tablet PO (08:37)
[2019-09-13 14:00] VITALS: BP 101/61; PULSE 87; RESP 18; TEMP 36.6
--- NOTE | 2019-09-13 15:15 | PM.NPN ---
Subjective NPU Subjective: Interval history: Jina presents today reporting that she is doing fine. She is much less focused on her delusionary content. However she does continue to endorse a desire not to return back to her circumstance with her mother. We discussed the fact that that decision was a legal decision and not 1 made at the level of our organization. She denied any headaches, and reports that she is eating and sleeping well. Mental Status Exam MSE Comments: This is a well-nourished, well-developed, white female, with adequate dress, grooming, and eye contact. No abnormal movements, except for mild but improving psychomotor retardation. Cooperative with exam in no acute distress. Speech was more normal rate and volume. Mood described as alright; affect odd. Thought process, organized. Thought content: patient denied any suicidal or homicidal ideation, there were no delusions reported, patient not mentioning delusional content other than paranoia, patient denied any auditory or visual hallucinations,But is overheard speaking to self but less today. Attention and concentration appeared intact, and memory is not reliable, but none were formally tested. She is alert and oriented to person and place. Insight and judgment are impaired. Intellectual ability is impaired. Vitals/I&O/Wt Last Vital Signs Temp 98.1 F 09/13/19 22:00 Pulse 93 09/13/19 22:00 Resp 17 09/13/19 22:00 BP 118/80 09/13/19 22:00 Pulse Ox 99 09/13/19 22:00 Home Medications ibuprofen 200 mg capsule 400 mg PO Q8H PRN 07/08/19 [History Confirmed 08/29/19] lithium carbonate 300 mg capsule 300 mg PO .COMPLEX #90 cap 07/08/19 [Rx Confirmed 08/29/19] mometasone 50 mcg/actuation nasal spray 2 spray INTRANASAL DAILY PRN 07/08/19 [History Confirmed 08/29/19] Geodon 60 mg PO QAM 08/29/19 [History Confirmed 08/29/19] Geodon See Rx Instructions .ROUTE .COMPLEX 08/29/19 [History Confirmed 08/29/19] PNV,calcium 97-eelg-idoku acid [ Vitamin Plus Low Iron] 1 tab PO DAILY 08/29/19 [History Confirmed 08/29/19] Remeron 30 mg PO BEDTIME 08/29/19 [History Confirmed 08/29/19] cholecalciferol (vitamin D3) 50,000 unit PO Q7D 08/29/19 [History Confirmed 08/29/19] divalproex 250 mg PO BID 08/29/19 [History Confirmed 08/29/19] ipratropium bromide 2 spray INTRANASAL TID PRN 08/29/19 [History Confirmed 08/29/19] montelukast 10 mg PO DAILY 08/29/19 [History Confirmed 08/29/19] prazosin 1 mg PO BEDTIME 08/29/19 [History Confirmed 08/29/19] levothyroxine 25 mcg tablet 25 mcg PO DAILY #30 tab 09/05/19 [Rx] Active Medications Acetaminophen (Tylenol) 650 mg PO Q4H PRN PRN Reason: MILD PAIN Last Admin: 09/08/19 13:43 Dose: 650 mg Documented by: Benztropine Mesylate (Cogentin) 1 mg PO BID PRN PRN Reason: Mild Extrapyramidal symptoms Camphor/Menthol/Phenol (Blistex) 1 applic TOPICAL Q1H PRN PRN Reason: DRYNESS Diphenhydramine HCl (Benadryl) 50 mg IM Q4H PRN PRN Reason: Severe Aggression Diphenhydramine HCl (Benadryl) 50 mg IM ONCE PRN PRN Reason: Severe Extrapyramidal Symptoms Haloperidol (Haldol) 5 mg PO Q4H PRN PRN Reason: AGITATION Haloperidol Lactate (Haldol Inj) 5 mg IM Q4H PRN PRN Reason: Severe Aggression Hydroxyzine Pamoate (Vistaril) 50 mg PO Q6H PRN PRN Reason: ANXIETY Last Admin: 09/09/19 20:12 Dose: 50 mg Documented by: Ibuprofen (Motrin) 400 mg PO Q8H PRN PRN Reason: MODERATE PAIN Levothyroxine Sodium (Synthroid) 25 mcg PO DAILY [facility] Last Admin: 09/13/19 08:37 Dose: 25 mcg Documented by: [place] Carbonate (Eskalith) 600 mg PO BEDTIME [facility] Last Admin: 09/13/19 20:49 Dose: 600 mg Documented by: [place] Carbonate (Eskalith) 300 mg PO DAILY [facility] Last Admin: 09/13/19 08:37 Dose: 300 mg Documented by: Loperamide HCl (Imodium Capsule) 2 mg PO Q6H PRN PRN Reason: DIARRHEA Mirtazapine (Remeron) 30 mg PO BEDTIME [facility] Last Admin: 09/13/19 20:49 Dose: 30 mg Documented by: Montelukast Sodium (Singulair) 10 mg PO DAILY [facility] Last Admin: 09/13/19 08:37 Dose: 10 mg Documented by: Nicotine (Nicoderm 21 Mg Patch) 1 patch TRANSDERMA DAILY PRN PRN Reason: NICOTINE WITHDRAWAL Nicotine Polacrilex (Nicorette) 2 mg BUCCAL Q2H PRN PRN Reason: NICOTINE WITHDRAWAL Last Admin: 09/10/19 08:02 Dose: 2 mg Documented by: Non-Formulary Medication (Ipratropium [place]) 2 spray INTRANASAL TID PRN PRN Reason: unknown Non-Formulary Medication (Mometasone [Nasonex]) 2 spray INTRANASAL DAILY PRN PRN Reason: unknown Non-Formulary Medication (Pnv,Calcium 10-Wmvr-Vrgcp Acid [ Vitamin Plus Low Iron]) 1 tab PO DAILY [facility] Last Admin: 09/02/19 07:57 Dose: Not Given Documented by: Olanzapine (Zyprexa Zydis) 5 mg PO Q4H PRN PRN Reason: Agitation/Psychosis Last Admin: 09/05/19 20:48 Dose: 5 mg Documented by: Ondansetron HCl (Zofran) 4 mg PO Q6H PRN PRN Reason: NAUSEA AND VOMITING Prazosin HCl (Minipress) 1 mg PO BEDTIME [facility] Last Admin: 09/13/19 20:49 Dose: 1 mg Documented by: Ziprasidone (Geodon) 80 mg PO BID [facility] Last Admin: 09/13/19 17:02 Dose: 80 mg Documented by: Data NPU : 08/29/19 15:08 08/29/19 15:08 A&P Additional A&P Information 1) Acute psychosis: This is a 24-year-old white female with psychosis, intellectual disabilities and behavioral issues who presents acutely psychotic and adjusting to the medications being prescribed. 1. Continue current medication. 2. Encourage individual, group and milieu therapy. 3. Continue to 15-minute checks for safety. (2) Moderate intellectual disabilities: (3) Autism spectrum disorder: (4) Intermittent explosive disorder: Involuntary Hold Information 96 Hour Hold: 96 Hour Involuntary Admission: Yes 96 Hour Hold Ending Date: 09/04/19 96 Hour Hold Ending Time: 15:20 Attestations NPU Medical Necessity Statement*: Inpatient hospitalization is medically necessary and the clinically appropriate intervention at this time. We will monitor medications and adjust as indicated. Likely length of stay 2-4 days. Coding Level of Care Code Acute Process Control Engineer for Dev Guzmán
[2019-09-13] MEDS: mirtazapine 30 mg Tablet PO (20:49)
[2019-09-13] MEDS: lithium carbonate 300 mg Capsule 600 MG PO (20:49)
[2019-09-13] MEDS: prazosin 1 mg Capsule PO (20:49)
[2019-09-13 22:00] VITALS: BP 118/80; PULSE 93; RESP 17; TEMP 36.7; O2SAT 99
[2019-09-14 06:00] VITALS: BP 114/74; PULSE 68; RESP 18; TEMP 37.1; O2SAT 99
[2019-09-14] MEDS: ziprasidone hcl 40 mg Capsule 80 MG PO ×2 (08:20→17:27)
[2019-09-14] MEDS: lithium carbonate 300 mg Capsule PO (08:20)
[2019-09-14] MEDS: paliperidone ER 6 mg Tablet PO (08:21)
[2019-09-14] MEDS: levothyroxine 25 mcg Tablet PO (08:21)
[2019-09-14] MEDS: montelukast sodium 10 mg Tablet PO (08:21)
--- NOTE | 2019-09-14 13:44 | PM.NPN ---
Subjective NPU Subjective: Interval history: Jina presented today with more merlin psychotic behavior than recently seen. I walked into the room and noted her to be laughing to herself. When I questioned what was going on she reported she was laughing because the midgets who was trying to take her babies was barely bigger than the babies were. She went on talking about the type of men that she was attracted to as she is interested in having a baby and then as I was leaving the room she reported black is beautiful, steele is grand, but white is the color of the big boss man. She endorsed that that was something her mom always said. Mental Status Exam MSE Comments: This is a well-nourished, well-developed, white female, with adequate dress, grooming, and eye contact. No abnormal movements, except for mild but improving psychomotor retardation. Cooperative with exam in no acute distress. Speech was more normal rate and volume. Mood described as alright; affect odd. Thought process, organized. Thought content: patient denied any suicidal or homicidal ideation, there were no delusions reported, patient not mentioning delusional content other than paranoia she did however have continued persecutory and grandiose delusions, patient denied any auditory or visual hallucinations,But is overheard speaking to self and laughing. Attention and concentration appeared intact, and memory is not reliable, but none were formally tested. She is alert and oriented to person and place. Insight and judgment are impaired. Intellectual ability is impaired. Vitals/I&O/Wt Last Vital Signs Temp 98.7 F 09/14/19 06:00 Pulse 68 09/14/19 06:00 Resp 18 09/14/19 06:00 BP 114/74 09/14/19 06:00 Pulse Ox 99 09/14/19 06:00 Weight last 48 hrs Weight 106.594 kg Home Medications ibuprofen 200 mg capsule 400 mg PO Q8H PRN 07/08/19 [History Confirmed 08/29/19] lithium carbonate 300 mg capsule 300 mg PO .COMPLEX #90 cap 07/08/19 [Rx Confirmed 08/29/19] mometasone 50 mcg/actuation nasal spray 2 spray INTRANASAL DAILY PRN 07/08/19 [History Confirmed 08/29/19] Geodon 60 mg PO QAM 08/29/19 [History Confirmed 08/29/19] Geodon See Rx Instructions .ROUTE .COMPLEX 08/29/19 [History Confirmed 08/29/19] PNV,calcium 54-kdqk-mwcgq acid [ Vitamin Plus Low Iron] 1 tab PO DAILY 08/29/19 [History Confirmed 08/29/19] Remeron 30 mg PO BEDTIME 08/29/19 [History Confirmed 08/29/19] cholecalciferol (vitamin D3) 50,000 unit PO Q7D 08/29/19 [History Confirmed 08/29/19] divalproex 250 mg PO BID 08/29/19 [History Confirmed 08/29/19] ipratropium bromide 2 spray INTRANASAL TID PRN 08/29/19 [History Confirmed 08/29/19] montelukast 10 mg PO DAILY 08/29/19 [History Confirmed 08/29/19] prazosin 1 mg PO BEDTIME 08/29/19 [History Confirmed 08/29/19] levothyroxine 25 mcg tablet 25 mcg PO DAILY #30 tab 09/05/19 [Rx] Active Medications Acetaminophen (Tylenol) 650 mg PO Q4H PRN PRN Reason: MILD PAIN Last Admin: 09/08/19 13:43 Dose: 650 mg Documented by: Benztropine Mesylate (Cogentin) 1 mg PO BID PRN PRN Reason: Mild Extrapyramidal symptoms Camphor/Menthol/Phenol (Blistex) 1 applic TOPICAL Q1H PRN PRN Reason: DRYNESS Diphenhydramine HCl (Benadryl) 50 mg IM Q4H PRN PRN Reason: Severe Aggression Diphenhydramine HCl (Benadryl) 50 mg IM ONCE PRN PRN Reason: Severe Extrapyramidal Symptoms Haloperidol (Haldol) 5 mg PO Q4H PRN PRN Reason: AGITATION Haloperidol Lactate (Haldol Inj) 5 mg IM Q4H PRN PRN Reason: Severe Aggression Hydroxyzine Pamoate (Vistaril) 50 mg PO Q6H PRN PRN Reason: ANXIETY Last Admin: 09/09/19 20:12 Dose: 50 mg Documented by: Ibuprofen (Motrin) 400 mg PO Q8H PRN PRN Reason: MODERATE PAIN Levothyroxine Sodium (Synthroid) 25 mcg PO DAILY [facility] Last Admin: 09/14/19 08:21 Dose: 25 mcg Documented by: [place] Carbonate (Eskalith) 600 mg PO BEDTIME REPLACED BY [facility] Last Admin: 09/14/19 20:15 Dose: 600 mg Documented by: [place] Carbonate (Eskalith) 300 mg PO DAILY [facility]PL[facility] BY [facility] Last Admin: 09/14/19 08:20 Dose: 300 mg Documented by: Loperamide HCl (Imodium Capsule) 2 mg PO Q6H PRN PRN Reason: DIARRHEA Mirtazapine (Remeron) 30 mg PO BEDTIME REPLACED BY [facility] Last Admin: 09/14/19 20:15 Dose: 30 mg Documented by: Montelukast Sodium (Singulair) 10 mg PO DAILY [facility]PL[facility] BY [facility] Last Admin: 09/14/19 08:21 Dose: 10 mg Documented by: Nicotine (Nicoderm 21 Mg Patch) 1 patch TRANSDERMA DAILY PRN PRN Reason: NICOTINE WITHDRAWAL Nicotine Polacrilex (Nicorette) 2 mg BUCCAL Q2H PRN PRN Reason: NICOTINE WITHDRAWAL Last Admin: 09/10/19 08:02 Dose: 2 mg Documented by: Non-Formulary Medication (Ipratropium [place]) 2 spray INTRANASAL TID PRN PRN Reason: unknown Non-Formulary Medication (Mometasone [Nasonex]) 2 spray INTRANASAL DAILY PRN PRN Reason: unknown Non-Formulary Medication (Pnv,Calcium 07-Xvrf-Fevyp Acid [ Vitamin Plus Low Iron]) 1 tab PO DAILY [facility]PLACED BY [facility] Last Admin: 09/02/19 07:57 Dose: Not Given Documented by: Olanzapine (Zyprexa Zydis) 5 mg PO Q4H PRN PRN Reason: Agitation/Psychosis Last Admin: 09/05/19 20:48 Dose: 5 mg Documented by: Ondansetron HCl (Zofran) 4 mg PO Q6H PRN PRN Reason: NAUSEA AND VOMITING Prazosin HCl (Minipress) 1 mg PO BEDTIME REPLACED BY [facility] Last Admin: 09/14/19 20:15 Dose: 1 mg Documented by: Ziprasidone (Geodon) 80 mg PO BID REPLACED BY [facility] Last Admin: 09/14/19 17:27 Dose: 80 mg Documented by: Data NPU : 08/29/19 15:08 08/29/19 15:08 A&P Additional A&P Information 1) Acute psychosis: This is a 24-year-old white female with psychosis, intellectual disabilities and behavioral issues who presents acutely psychotic and adjusting to the medications being prescribed. 1. Continue current medication. 2. Encourage individual, group and milieu therapy. 3. Continue to 15-minute checks for safety. (2) Moderate intellectual disabilities: (3) Autism spectrum disorder: (4) Intermittent explosive disorder: Involuntary Hold Information 96 Hour Hold: 96 Hour Involuntary Admission: Yes 96 Hour Hold Ending Date: 09/04/19 96 Hour Hold Ending Time: 15:20 Attestations NPU Medical Necessity Statement*: Inpatient hospitalization is medically necessary and the clinically appropriate intervention at this time. We will monitor medications and adjust as indicated. Likely length of stay 2-4 days. Coding Level of Care Code Acute Optimization Specialist for Dev Guzmán
[2019-09-14 14:00] VITALS: BP 118/76; PULSE 68; RESP 18; TEMP 37; O2SAT 97
[2019-09-14] MEDS: prazosin 1 mg Capsule PO (20:15)
[2019-09-14] MEDS: lithium carbonate 300 mg Capsule 600 MG PO (20:15)
[2019-09-14] MEDS: mirtazapine 30 mg Tablet PO (20:15)
--- NOTE | 2019-09-14 20:20 | PC.NURSE ---
Pt given HS lithium, remeron, and minipress at this time.
[2019-09-14 21:00] VITALS: BP 125/80; PULSE 83; RESP 20; TEMP 37.1; O2SAT 100
[2019-09-15 06:00] VITALS: BP 107/68; PULSE 88; RESP 18; TEMP 37; O2SAT 98
[2019-09-15] MEDS: ziprasidone hcl 40 mg Capsule 80 MG PO ×2 (08:41→18:17)
[2019-09-15] MEDS: lithium carbonate 300 mg Capsule PO (08:42)
[2019-09-15] MEDS: montelukast sodium 10 mg Tablet PO (08:42)
[2019-09-15] MEDS: paliperidone ER 6 mg Tablet PO (08:42)
[2019-09-15] MEDS: levothyroxine 25 mcg Tablet PO (08:42)
--- NOTE | 2019-09-15 13:32 | P.PN_ITS ---
Subjective NPU Subjective: Interval history: Jina presents today reporting that she is doing okay. She reports that she is considering the possibility of going home and by home she meant with her mother, her guardian, which is the first time she has even remotely endorsed that that is possible. She reports that she would go home, but she wanted to make sure that her mom was okay with her having children, and more importantly that her mom was supportive of her getting the children back, she stated; again, having less aggressive angry thoughts about her mom is new and likely a positive development. Otherwise, she continues to report eating and sleeping well. Mental Status Exam MSE Comments: This is a well-developed, well-nourished, white female, with adequate dress, grooming, and eye contact with notable strabismus. Cooperative with exam in no acute distress. Speech was normal rate and volume. Mood described as okay; affect subdued. Thought process, organized. Thought content: patient denied any suicidal or homicidal ideation, there were no delusions reported, but she continues to have paranoia and grandiose delusions. She denied any auditory or visual hallucinations. She was not seen personally to be speaking to herself or attending to internal stimuli. Attention and concentrat ion are improving, and memory is unreliable still, but none were formally tested. She is alert and oriented times person and place. Insight and judgment are impaired but improving. Vitals/I&O/Wt Last Vital Signs Temp 98.6 F 09/15/19 22:00 Pulse 90 09/15/19 22:00 Resp 22 H 09/15/19 22:00 BP 125/85 09/15/19 22:00 Pulse Ox 100 09/15/19 22:00 Weight last 48 hrs Weight 106.594 kg Data NPU : 08/29/19 15:08 08/29/19 15:08 A&P Additional A&P Information 1) Acute psychosis: This is a 24-year-old white female with psychosis, intellectual disabilities and behavioral issues who presents acutely psychotic and adjusting to the medications being prescribed. 1. Continue current medication. 2. Encourage individual, group and milieu therapy. 3. Continue to 15-minute checks for safety. (2) Moderate intellectual disabilities: (3) Autism spectrum disorder: (4) Intermittent explosive disorder: Involuntary Hold Information 96 Hour Hold: 96 Hour Involuntary Admission: Yes 96 Hour Hold Ending Date: 09/04/19 96 Hour Hold Ending Time: 15:20 Attestations NPU Medical Necessity Statement*: Inpatient hospitalization is medically necessary and the clinically appropriate intervention at this time. We will monitor medications and adjust as indicated. Likely length of stay 1-3 days. Coding Level of Care Code Acute Senior Occupational Therapist for Dev Guzmán
[2019-09-15 14:00] VITALS: BP 120/84; PULSE 95; RESP 18; TEMP 36.7; O2SAT 100
[2019-09-15] MEDS: prazosin 1 mg Capsule PO (21:10)
[2019-09-15] MEDS: lithium carbonate 300 mg Capsule 600 MG PO (21:10)
[2019-09-15] MEDS: mirtazapine 30 mg Tablet PO (21:10)
--- NOTE | 2019-09-15 21:11 | PC.NURSE ---
pt given HS meds lithium, remeron, and minipress at this time.
[2019-09-15 22:00] VITALS: BP 125/85; PULSE 90; RESP 22; TEMP 37; O2SAT 100
[2019-09-16 06:00] VITALS: BP 102/67; PULSE 68; RESP 20; TEMP 36.7; O2SAT 98
[2019-09-16] MEDS: lithium carbonate 300 mg Capsule PO (08:50)
[2019-09-16] MEDS: paliperidone ER 6 mg Tablet PO (08:50)
[2019-09-16] MEDS: montelukast sodium 10 mg Tablet PO (08:50)
[2019-09-16] MEDS: ziprasidone hcl 40 mg Capsule 80 MG PO ×2 (08:50→17:45)
[2019-09-16] MEDS: levothyroxine 25 mcg Tablet PO (08:50)
--- NOTE | 2019-09-16 12:38 | PM.NPN ---
Subjective NPU Subjective: Interval history: Jina presents today continuing to report an openness to the possibility of going home. An attempt was made to talk to mom who also reports she feels that Jina is improving. We will continue to attempt to speak so that we can arrange a time and place for discharge if mom is feeling improvement is significant enough. Jina continues to have focus on and being able to have babies and making sure her mom is okay with that. Mental Status Exam MSE Comments: This is a well-nourished, well-developed, white female, with adequate dress, grooming, and eye contact with clear strabismus. No abnormal movements except for mild psychomotor retardation that is improving. Cooperative with exam in no acute distress. Speech was decreased rate and volume but improving. Mood described as okay; affect flat. Thought process, organized. Thought content: patient denied any suicidal or homicidal ideation, there were no delusions reported. Her paranoia is improving. Her grandiose delusions are dissipating. Patient denied any auditory or visual hallucinations reported and she was not speaking to herself by this conventional underwriter. Attention, concentration, and memory appeared intact but were not formally tested. Alert and oriented times three. Insight and judgment are impaired but improving. Vitals/I&O/Wt Last Vital Signs Temp 98.5 F 09/17/19 21:21 Pulse 73 09/17/19 21:21 Resp 17 09/17/19 21:21 BP 113/76 09/17/19 21:21 Pulse Ox 98 09/17/19 21:21 Data NPU : 08/29/19 15:08 08/29/19 15:08 A&P Additional A&P Information . This is a 24-year-old white female with psychosis, intellectual disabilities and behavioral issues who presents acutely psychotic and adjusting to the medications being prescribed. 1. Continue current medication. 2. Encourage individual, group and milieu therapy. 3. Continue to 15-minute checks for safety. (2) Moderate intellectual disabilities: (3) Autism spectrum disorder: (4) Intermittent explosive disorder: Involuntary Hold Information 96 Hour Hold: 96 Hour Involuntary Admission: Yes 96 Hour Hold Ending Date: 09/04/19 96 Hour Hold Ending Time: 15:20 Attestations NPU Medical Necessity Statement*: Inpatient hospitalization is medically necessary and the clinically appropriate intervention at this time. We will monitor medications and adjust as indicated. Likely length of stay 1-3 days. Coding Level of Care Code Acute Gyro Mechanic for Dev Guzmán
[2019-09-16 14:00] VITALS: BP 118/79; PULSE 88; RESP 20; TEMP 37.1; O2SAT 100
--- NOTE | 2019-09-16 14:49 | PC.SOCIAL ---
important message updated via telephone call with guardian.
[2019-09-16] MEDS: hyDROXYzine 25 mg Capsule 50 MG PO (20:33)
[2019-09-16] MEDS: lithium carbonate 300 mg Capsule 600 MG PO (20:33)
[2019-09-16] MEDS: prazosin 1 mg Capsule PO (20:33)
[2019-09-16] MEDS: mirtazapine 30 mg Tablet PO (20:33)
[2019-09-16 20:51] VITALS: BP 132/90; PULSE 101; RESP 23; TEMP 37.1; O2SAT 100
--- NOTE | 2019-09-16 21:14 | PC.NURSE ---
pt given scheduled lithium, remeron, minipress, and prn visteril at this time.
[2019-09-17 06:00] VITALS: BP 111/61; PULSE 82; RESP 20; TEMP 36.9; O2SAT 98
[2019-09-17] MEDS: levothyroxine 25 mcg Tablet PO (08:23)
[2019-09-17] MEDS: ziprasidone hcl 40 mg Capsule 80 MG PO ×2 (08:23→17:56)
[2019-09-17] MEDS: lithium carbonate 300 mg Capsule PO (08:23)
[2019-09-17] MEDS: paliperidone ER 6 mg Tablet PO (08:23)
[2019-09-17] MEDS: montelukast sodium 10 mg Tablet PO (08:23)
--- NOTE | 2019-09-17 11:45 | PM.NPN ---
Subjective NPU Subjective: Interval history: Jina presents today continuing to be able to identify that going home is the most reasonable outcome right now. I had an opportunity to speak with her mother and she agrees that she is improving and moving in the right direction. We discussed the risks, benefits, and alternatives of her coming home and agreed that she should be ready in the next couple of days if things continue going this direction. We talked about the possibility of a Sunday discharge however mom is babysitting on that day and we agreed that being able to give her full attention is the right thing and so we agreed to tentatively plan for discharge for Sunday. She reports she is tolerating the medication and eating and sleeping better. Mental Status Exam MSE Comments: This is a well-nourished, well-developed, white female, with adequate dress, grooming, and eye contact. She continues to have strabismus. Cooperative with exam in no acute distress. Speech was normal rate and volume but more normal. Mood described as okay; affect less odd. Thought process, organized. Thought content: patient denied any suicidal or homicidal ideation, there were no delusions reported or noted, patient denied any auditory or visual hallucinations. Attention, concentration, and memory appeared intact but were not formally tested. Alert and oriented times three. Insight and judgment are limited but improving. Vitals/I&O/Wt Last Vital Signs Temp 98.7 F 09/16/19 20:51 Pulse 101 H 09/16/19 20:51 Resp 23 H 09/16/19 20:51 BP 132/90 09/16/19 20:51 Pulse Ox 100 09/16/19 20:51 Data NPU : 08/29/19 15:08 08/29/19 15:08 A&P Additional A&P Information This is a 24-year-old white female with psychosis, intellectual disabilities and behavioral issues who presents acutely psychotic and adjusting to the medications being prescribed. 1. Continue current medication. 2. Encourage individual, group and milieu therapy. 3. Continue to 15-minute checks for safety. 4. Work with social work for d/c Sunday (2) Moderate intellectual disabilities: (3) Autism spectrum disorder: (4) Intermittent explosive disorder: Involuntary Hold Information 96 Hour Hold: 96 Hour Involuntary Admission: Yes 96 Hour Hold Ending Date: 09/04/19 96 Hour Hold Ending Time: 15:20 Attestations NPU Medical Necessity Statement*: Inpatient hospitalization is medically necessary and the clinically appropriate intervention at this time. We will monitor medications and adjust as indicated. Likely length of stay 1-3 days.Tentative plan for DC Sunday. Coding Level of Care Code Acute Computer Numerical Control Programmer for Dev Guzmán
[2019-09-17 14:00] VITALS: BP 110/72; PULSE 100; RESP 20; TEMP 36.7; O2SAT 100
[2019-09-17] MEDS: mirtazapine 30 mg Tablet PO (20:24)
[2019-09-17] MEDS: lithium carbonate 300 mg Capsule 600 MG PO (20:24)
[2019-09-17] MEDS: prazosin 1 mg Capsule PO (20:24)
[2019-09-17 21:21] VITALS: BP 113/76; PULSE 73; RESP 17; TEMP 36.9; O2SAT 98
[2019-09-18 06:00] VITALS: BP 118/70; PULSE 86; RESP 18; TEMP 36.7; O2SAT 100
[2019-09-18] MEDS: montelukast sodium 10 mg Tablet PO (08:19)
[2019-09-18] MEDS: lithium carbonate 300 mg Capsule PO (08:19)
[2019-09-18] MEDS: paliperidone ER 6 mg Tablet PO (08:19)
[2019-09-18] MEDS: levothyroxine 25 mcg Tablet PO (08:20)
[2019-09-18] MEDS: ziprasidone hcl 40 mg Capsule 80 MG PO ×2 (08:20→17:07)
[2019-09-18 14:00] VITALS: BP 121/76; PULSE 84; RESP 20; TEMP 36.6; O2SAT 100
--- NOTE | 2019-09-18 20:04 | P.PN_ITS ---
Subjective NPU Subjective: Interval history: Jina presents today reporting that she was interested in knowing if she was going to her mom?s house today or Sunday. We discussed, in some detail, the circumstances that led to Sunday discharge, but she seemed to be fairly upbeat about the plan. She denied any significant issues. She reports the medication is serving her well. She reports she is e ating and sleeping well. Mental Status Exam MSE Comments: This is a well-nourished, well-developed, white female, with adequate dress, grooming, and eye contact. No abnormal movements. Cooperative with exam in no acute distress. Speech was normal rate and volume. Mood described as better; affect congruent and less odd. Thought process, organized. Thought content: patient denied any suicidal or homicidal ideation; there were no delusions reported or noted and she appeared absent paranoia, I did not really explore delusional content and will spend some time on that tomorrow; she denied any auditory or visual hallucinations. Attention, concentration, and memory appeared intact but were not formally tested. She is alert and oriented times three. Insight and judgment are limited but improving. Vitals/I&O/Wt Last Vital Signs Temp 97.8 F 09/18/19 14:00 Pulse 84 09/18/19 14:00 Resp 20 H 09/18/19 14:00 BP 121/76 09/18/19 14:00 Pulse Ox 100 09/18/19 14:00 Data NPU : 08/29/19 15:08 08/29/19 15:08 A&P Additional A&P Information This is a 24-year-old white female with psychosis, intellectual disabilities and behavioral issues who presents acutely psychotic and adjusting to the medications being prescribed. 1. Continue current medication. 2. Encourage individual, group and milieu therapy. 3. Continue to 15-minute checks for safety. (2) Moderate intellectual disabilities: (3) Autism spectrum disorder: (4) Intermittent explosive disorder: Involuntary Hold Information 96 Hour Hold: 96 Hour Involuntary Admission: Yes 96 Hour Hold Ending Date: 09/04/19 96 Hour Hold Ending Time: 15:20 Attestations NPU Medical Necessity Statement*: Inpatient hospitalization is medically necessary and the clinically appropriate intervention at this time. We will monitor medications and adjust as indicated. Likely length of stay 1-3 days.Plan for discharge 09/20/2019. Coding Level of Care Code Acute Target Trimmer for [facility]
[2019-09-18] MEDS: prazosin 1 mg Capsule PO (20:44)
[2019-09-18] MEDS: lithium carbonate 300 mg Capsule 600 MG PO (20:44)
[2019-09-18] MEDS: mirtazapine 30 mg Tablet PO (20:44)
[2019-09-18 21:57] VITALS: BP 121/67; PULSE 91; RESP 19; TEMP 36.7; O2SAT 100
[2019-09-19 06:00] VITALS: BP 113/72; PULSE 105; RESP 17; TEMP 36.7; O2SAT 97
[2019-09-19] MEDS: montelukast sodium 10 mg Tablet PO (08:26)
[2019-09-19] MEDS: ziprasidone hcl 40 mg Capsule 80 MG PO ×2 (08:26→18:01)
[2019-09-19] MEDS: paliperidone ER 6 mg Tablet PO (08:26)
[2019-09-19] MEDS: levothyroxine 25 mcg Tablet PO (08:27)
[2019-09-19] MEDS: lithium carbonate 300 mg Capsule PO (08:27)
--- NOTE | 2019-09-19 11:32 | PC.SOCIAL ---
Important Medicare Message Reviewed previously reviewed Important Medicare Message with patients mother and guardian April Ugalde over the phone, updated copy in chart.
--- NOTE | 2019-09-19 13:00 | P.PN_ITS ---
Subjective NPU Subjective: Interval history: Jina presents today reporting that she is somewhat worried about going home. We discussed the fact it was fairly clear that she is getting anxious now about going where her initial response was the excited about leaving the hospital. I assured her that I spoken to her mother and her mother is happy about her returning home and understands her condition and has plans to be available and supportive when she is discharged tomorrow. She endorses that she is eating and sleeping well at that denied any specific issues. Mental Status Exam MSE Comments: This is a well-nourished, well-developed, white female, with adequate dress, grooming, and eye contact with strabismus notable. No abnormal movements except for mild psychomotor retardation. Cooperative with exam in no acute distress. Speech was slightly decreased rate and volume. Mood described as better; affect congruent but anxious. Thought process, more organized. Thought content: patient denied any suicidal or homicidal ideation; there were no delusions reported, but some paranoia noted; she denied any auditory or visual hallucinations. Attention, concentration, and memory appeared intact but were not formally tested. She is alert and oriented times three. Insight and judgment are limited but improving. Vitals/I&O/Wt Last Vital Signs Temp 98.4 F 09/19/19 19:34 Pulse 96 09/19/19 19:34 Resp 18 09/19/19 19:34 BP 137/86 09/19/19 19:34 Pulse Ox 100 09/19/19 19:34 Data NPU : 08/29/19 15:08 08/29/19 15:08 A&P Additional A&P Information This is a 24-year-old white female with psychosis, intellectual disabilities and behavioral issues who presents acutely psychotic and adjusting to the medications being prescribed. 1. Continue current medication. 2. Encourage individual, group and milieu therapy. 3. Continue to 15-minute checks for safety. (2) Moderate intellectual disabilities: (3) Autism spectrum disorder: (4) Intermittent explosive disorder: Involuntary Hold Information 96 Hour Hold: 96 Hour Involuntary Admission: Yes 96 Hour Hold Ending Date: 09/04/19 96 Hour Hold Ending Time: 15:20 Attestations NPU Medical Necessity Statement*: Inpatient hospitalization is medically necessary and the clinically appropriate intervention at this time. We will monitor me dications and adjust as indicated. Likely length of stay 1-2 days.Plan for discharge tomorrow. Coding Level of Care Code Acute [employer]els Research Scientist for [facility]
[2019-09-19 14:00] VITALS: BP 132/87; PULSE 77; RESP 20; TEMP 36.6; O2SAT 99
[2019-09-19 19:34] VITALS: BP 137/86; PULSE 96; RESP 18; TEMP 36.9; O2SAT 100
[2019-09-19] MEDS: lithium carbonate 300 mg Capsule 600 MG PO (20:46)
[2019-09-19] MEDS: prazosin 1 mg Capsule PO (20:46)
[2019-09-19] MEDS: mirtazapine 30 mg Tablet PO (20:46)
[2019-09-20 06:00] VITALS: BP 118/88; PULSE 95; RESP 19; TEMP 37; O2SAT 98
[2019-09-20] MEDS: paliperidone ER 6 mg Tablet PO (08:09)
[2019-09-20] MEDS: montelukast sodium 10 mg Tablet PO (08:09)
[2019-09-20] MEDS: lithium carbonate 300 mg Capsule PO (08:10)
[2019-09-20] MEDS: levothyroxine 25 mcg Tablet PO (08:10)
[2019-09-20] MEDS: ziprasidone hcl 40 mg Capsule 80 MG PO (08:10)
--- NOTE | 2019-09-20 11:32 | PM.NDC ---
Diagnoses at Discharge Discharge Diagnosis (1) Acute psychosis: Status: Acute (2) Moderate intellectual disabilities: Status: Acute (3) Autism spectrum disorder: Status: Chronic (4) Intermittent explosive disorder: Status: Chronic (5) Schizophrenia: Status: Acute Reason for Visit Reason for Visit: Reason For Visit: AMS;96 Brief History: History of Present Illness CC: I am afraid they are going to kill all my babies. I think I am doing good. Jina Ugalde is a 24 year old female under guardianship t her mother. She was admitted apparently due to increasing auditory hallucinations. The pateint says that the (adoptive) mother is the one who is crazy. However, the patient was so disorganized in her interview that target symptoms coudl not be identified. She knows that she is on lithium and Geodon but believes the lithium is to help calm her down. She does not know what the Geodon is for. She answered questions in such an obtuse manner that the interview provided no factual information (see MSE below). She talked about her 30 yo niece named Mojgan. She has 12 children and she can hear them screaming at night. She spends her day watching . Could not say what she was watching. Laboratory Tests 08/29/19 08/29/19 15:08 15:11 Urine Opiates Screen Negative Ur Barbiturates Screen Negative Ur Phencyclidine Scrn Negative Ur Amphetamines Screen Negative U Benzodiazepines Scrn Negative Urine Cocaine Screen Negative U Marijuana (THC) Screen Negative Ethyl Alcohol < 10 [place] level on current dosage = 1.0 ER physician note: Patient is a 24-year-old female who has a history of bipolar along with Asperger's and is currently on lithium along with multiple other meds. Her mother and patient states she has been hearing voices and people been telling her to do things through her window and in the [place]. She will not tell me what they are telling her. Mother states she has been increasingly agitated and difficult to control. Patient here does have flight of ideas and is very tangential thoughts. Denies any worsening improving factors. Mental health history: pt was able to estimate that she had been hospitalized because my mother wanted it about 8 times variously at [place], [facility]. They did nothing that was helpful though she could not name anything that anyone did for her. She could not remember any medication trials that she had. Social history: patient is adopted. Details are unknown. Legal history: no history of felonies or arrests in [place] public record Past medical history:unknown Mental Status Exam: the patient is an alert interpersonally engaged female appearing approximately her stated age. She is wide eyed and hypervigilant. She has a minimal left esotropia. She is not a relaible informant. Information is nonsense much of the time and not internally consistent. Appearance: hygiene is fair; no gross neurological deficits., gait is unremarkable; AIMS=0 Speech: Speech is of normal rate and rhythm and easily understood. Thought processes: Thought processes are illogical She is not goal directed. Answers are non-sequiters often. She speaks ini the format of complete sentences but often they do not make any sense. Judgment is not adequate for safety. Associations: loose and often non-existent Psychotic processes: There is no indication of guarding or paranoia. There is no attention to the internal stimuli. Auditory and visual hallucinations are denied. Judgment: Insight is extremely poor. Problem solving skills are not adequate for safety. Orientation: The patient is oriented to person, place time and situation. Memory: unable to assess memory without collateral information source Attention: The patient is alert and interpersonally engaged. Language: Verbalizations are coherent. Fund of knowledge: Fund of knowledge is not assessed Affect/Mood: Affect is tense and hypervigilant with a euthymic mood. She denied suicidal ideation Affective range good Psychosis: perception is severely impaired by disorganized thinking Diagnoses: Schizophrenia - acute , disorganized type Hospital Course Hospital Course Jina presented to the emergency room in [place] and endorses believing that her mother was doing different things that were harmful to her. She was admitted to the neuropsychiatric unit and her medications were maintained, and her Geodon was increased. Finally, ultimately, Invega was introduced and she started having significant improvement. She slowly acclimated to the individual, group, and milieu therapies provided. She was able to experience a significant reduction in symptoms. During the hospitalization she had routine laboratory studies which were within normal limits, except for a few outliers. Additionally, she had a general medical evaluation which was within normal limits and revealed no new acute processes. Discharge Summary At the time of discharge she denied all lethality, her mood and anxiety was greatly reduced, her psychosis, including paranoia and grandiose delusions, was significantly diminished. She endorsed a willingness to go back to her mom?s house which was a concern in the beginning, and with a plan to follow through with outpatient services as recommended. She had been evaluated and was deemed absent credible lethality, and had achieved the maximum benefit from inpatient hospitalization, so she was discharged. Involuntary Hold Information 96 Hour Hold: 96 Hour Involuntary Admission: Yes 96 Hour Hold Ending Date: 09/04/19 96 Hour Hold Ending Time: 15:20 Mental Status Exam MSE Comments: This is a well-nourished, well-developed, white female, with adequate dress, grooming, and eye contact with notable strabismus. No abnormal movements, except for resolving psychomotor retardation. Cooperative with exam in no acute distress. Speech was normal rate and volume. Mood described as better; affect congruent. Thought process, organized. Thought content: patient denied any suicidal or homicidal ideation, there were no delusions reported, however she still has some mild paranoia which is likely reflective of the anxiety increasing with the thought of going home, she denied any auditory or visual hallucinations and has not been seen talking to herself. Attention and concentration were improved, and memory was becoming more reliable, but none were formally tested. She is alert and oriented times person and place. Insight and judgment are limited but improving. Discharge Data Vitals: Last Vital Signs Temp 98.6 F 09/20/19 06:00 Pulse 95 09/20/19 06:00 Resp 19 H 09/20/19 06:00 BP 118/88 09/20/19 06:00 Pulse Ox 98 09/20/19 06:00 Discharge Plan Discharge Patient Disposition: Home, Self-Care Condition: Stable Prescriptions: New lithium carbonate 300 mg Capsule 600 mg PO BEDTIME 30 Days Qty: 60 RF: 1 ziprasidone HCl 40 mg Capsule 80 mg PO BID 30 Days Qty: 120 RF: 0 paliperidone 6 mg Tablet Extended Release 24hr 6 mg PO DAILY 30 Days Qty: 30 RF: 1 levothyroxine 25 mcg Tablet 25 mcg PO DAILY 30 Days Qty: 30 RF: 1 Continued prazosin 1 mg capsule 1 mg PO BEDTIME 30 Days Qty: 30 RF: 1 ibuprofen 200 mg capsule 400 mg PO Q8H PRN (Reason: Pain) 30 Days Qty: 60 RF: 1 levothyroxine 25 mcg tablet 25 mcg PO DAILY 30 Days Qty: 30 RF: 1 lithium carbonate 300 mg capsule 300 mg PO .COMPLEX 30 Days Qty: 90 RF: 4 Remeron 30 mg tablet 30 mg PO BEDTIME 30 Days Qty: 30 RF: 1 Nasonex 50 mcg/actuation spray,non-aerosol 2 spray INTRANASAL DAILY PRN (Reason: unknown) 30 Days Qty: 1 RF: 1 montelukast 10 mg tablet 10 mg PO DAILY 30 Days Qty: 30 RF: 1 ipratropium bromide 42 mcg (0.06 %) spray,non-aerosol 2 spray INTRANASAL TID PRN (Reason: unknown) 30 Days Qty: 1 RF: 1 cholecalciferol (vitamin D3) 1,250 mcg (50,000 unit) capsule 50,000 unit PO Q7D 30 Days Qty: 4 RF: 1 Vitamin Plus Low Iron 27 mg iron- 1 mg tablet 1 tab PO DAILY 30 Days Qty: 30 RF: 1 Discontinued divalproex 250 mg tablet extended release 24 hr 250 mg PO BID RF: 0 ziprasidone HCl [Geodon] 80 mg capsule See Rx Instructions .ROUTE .COMPLEX RF: 0 ziprasidone HCl [Geodon] 60 mg capsule 60 mg PO QAM RF: 0 Discharge Orders: Discharge Order (Routine); Ordered 09/20/19 Ordered By: Aguila Rachel Referrals: KUNAL Clark FNP [Primary Care Provider] - Miriam Tubbs PMHNP [Staff Physician] - 10/01/19 1:00 pm Discharge Diet: Regular Discharge Activity: Resume usual activity Activity Restrictions/Additional Instructions: You might consider getting a psychological evaluation from a clinical psychologist. There is one in [place] at [facility]. Her name is Svetlana Blanca. [facility] Address: [address] [place] [id number] Discharge Date/Time: 09/20/19 14:05 Discharge Attestations NPU Time Spent in Discharge Care*: less than 30 min Specific Discharge Activities: Specific discharge activities: educating patient, discussing with behavioral health case manager/social workers/dc planners, documenting/other paperwork and evaluating patient/reviewing data Coding Level of Care Code Acute [employer] Patching Machine Operator for [facility] Fwd Diagnoses Acute psychosis F23 Moderate intellectual disabilities F71 Autism spectrum disorder F84.0 Intermittent explosive disorder F63.81 Schizophrenia F20.9
[2019-09-20 13:20] VITALS: BP 118/88; PULSE 95; RESP 19; TEMP 37; O2SAT 98
[2019-09-20 13:47] VITALS: BP 118/88; PULSE 95; RESP 19; TEMP 37; O2SAT 98
== END 2019-09-20 14:05 | disposition home or self-care (01) | DRG 885 ==
LOC: ER 16:09 → NP 16:30
PROVIDERS: Admitting Provider Psychiatry & Neurology Psychiatry; Emergency Provider Emergency Medicine; PCP Nurse Practitioner Family; Visit Provider Psychiatry & Neurology Psychiatry
DX: F20.9 Schizophrenia, unspecified (principal); F84.0 Autistic disorder; F71 Moderate intellectual disabilities; E03.9 Hypothyroidism, unspecified; F63.81 Intermittent explosive disorder; E55.9 Vitamin D deficiency, unspecified; Z79.899 Other long term (current) drug therapy
CPT/HCPCS: 12345; 36415; 80053; 80178; 80306; 80307; 81025; 85025; 99284; A9270

== ENCOUNTER → 2019-10-01 08:22 | Outpatient (BNVA) | payer MEDICARE, MEDICAID, SELFPAY | PROVIDERS: PCP Nurse Practitioner Family; Visit Provider Nurse Practitioner Psychiatric/Mental Health | DX: F20.0 Paranoid schizophrenia (principal); F63.81 Intermittent explosive disorder; F84.0 Autistic disorder; F71 Moderate intellectual disabilities | CPT/HCPCS: 99214 ==

== ENCOUNTER → 2019-10-20 07:40 | Outpatient (BNVA) | payer MEDICARE, MEDICAID, SELFPAY | PROVIDERS: PCP Nurse Practitioner Family; Visit Provider Nurse Practitioner Psychiatric/Mental Health | DX: F20.0 Paranoid schizophrenia (principal); F63.81 Intermittent explosive disorder; F84.0 Autistic disorder; F71 Moderate intellectual disabilities; F41.1 Generalized anxiety disorder | CPT/HCPCS: 99214 ==

== ENCOUNTER → 2019-10-27 07:40 | Outpatient (BNVA) | payer MEDICARE, MEDICAID, SELFPAY | PROVIDERS: PCP Nurse Practitioner Family; Visit Provider Nurse Practitioner Psychiatric/Mental Health | DX: F20.0 Paranoid schizophrenia (principal); F63.81 Intermittent explosive disorder; F84.0 Autistic disorder; F71 Moderate intellectual disabilities | CPT/HCPCS: 99214 ==

== ENCOUNTER → 2019-11-20 07:34 | Outpatient (BNVA) | payer MEDICARE, MEDICAID, SELFPAY | PROVIDERS: PCP Nurse Practitioner Family; Visit Provider Nurse Practitioner Psychiatric/Mental Health | DX: F20.0 Paranoid schizophrenia (principal); F63.81 Intermittent explosive disorder; F84.0 Autistic disorder; F71 Moderate intellectual disabilities | CPT/HCPCS: 99214 ==

== ENCOUNTER → 2019-12-29 07:39 | Outpatient (BNVA) | payer MEDICARE, MEDICAID, SELFPAY | PROVIDERS: PCP Nurse Practitioner Family; Visit Provider Nurse Practitioner Psychiatric/Mental Health | DX: F20.0 Paranoid schizophrenia (principal); F63.81 Intermittent explosive disorder; F84.0 Autistic disorder; F71 Moderate intellectual disabilities | CPT/HCPCS: 99214 ==

== ENCOUNTER → 2020-01-28 09:24 | Outpatient (BNVA) | payer MEDICARE, MEDICAID, SELFPAY | PROVIDERS: PCP Nurse Practitioner Family; Visit Provider Nurse Practitioner Psychiatric/Mental Health | DX: F20.0 Paranoid schizophrenia (principal); F63.81 Intermittent explosive disorder; F84.0 Autistic disorder; F71 Moderate intellectual disabilities | CPT/HCPCS: 99213 ==

== ENCOUNTER → 2020-04-08 14:10 | Outpatient (BNVA) | payer MEDICARE, MEDICAID, SELFPAY | PROVIDERS: PCP Nurse Practitioner Family; Visit Provider Nurse Practitioner Family | DX: E03.9 Hypothyroidism, unspecified (principal); E55.9 Vitamin D deficiency, unspecified; Z79.899 Other long term (current) drug therapy; Z13.6 Encounter for screening for cardiovascular disorders | CPT/HCPCS: 36415; 80053; 80061; 81003; 82306; 83036; 84443; 85007; 85027 ==

== ENCOUNTER → 2020-04-29 13:36 | Outpatient (BNVA) | payer MEDICARE, MEDICAID, SELFPAY | PROVIDERS: PCP Nurse Practitioner Family; Visit Provider Nurse Practitioner Family | DX: Z79.899 Other long term (current) drug therapy (principal); J01.90 Acute sinusitis, unspecified | CPT/HCPCS: 80053; 80178 ==

== ENCOUNTER → 2020-09-17 07:34 | Outpatient (BNVA) | payer MEDICARE, MEDICAID, SELFPAY | PROVIDERS: PCP Nurse Practitioner Family; Visit Provider Nurse Practitioner Psychiatric/Mental Health | DX: F20.0 Paranoid schizophrenia (principal); F63.81 Intermittent explosive disorder; F84.0 Autistic disorder; F71 Moderate intellectual disabilities; Z79.899 Other long term (current) drug therapy | CPT/HCPCS: 99214 ==

== ENCOUNTER → 2020-12-14 07:25 | Outpatient (BNVA) | payer MEDICARE, MEDICAID, SELFPAY | PROVIDERS: PCP Nurse Practitioner Family; Visit Provider Nurse Practitioner Psychiatric/Mental Health | DX: F20.0 Paranoid schizophrenia (principal); F63.81 Intermittent explosive disorder; F84.0 Autistic disorder; F71 Moderate intellectual disabilities; Z86.59 Personal history of other mental and behavioral disorders | CPT/HCPCS: 99215 ==

== ENCOUNTER → 2021-01-05 11:29 | Outpatient (BNVA) | payer MEDICARE, MEDICAID, SELFPAY | PROVIDERS: PCP Nurse Practitioner Family; Visit Provider Nurse Practitioner Family | DX: Z01.419 Encounter for gynecological examination (general) (routine) without abnormal findings (principal); E03.9 Hypothyroidism, unspecified; E55.9 Vitamin D deficiency, unspecified; N89.8 Other specified noninflammatory disorders of vagina; Z78.9 Other specified health status; Z13.6 Encounter for screening for cardiovascular disorders; Z79.899 Other long term (current) drug therapy | CPT/HCPCS: 80053; 80061; 81003; 82306; 83036; 84443; 85025; 87070; 87086; 87205; 88175 ==

== ENCOUNTER → 2021-01-12 14:35 | Outpatient (BNVA) | payer MEDICARE, MEDICAID, SELFPAY | PROVIDERS: PCP Nurse Practitioner Family; Visit Provider Nurse Practitioner Family | DX: R31.9 Hematuria, unspecified (principal) | CPT/HCPCS: 81003 ==

== ENCOUNTER → 2021-01-18 08:02 | Outpatient (BNVA) | payer MEDICARE, MEDICAID, SELFPAY | PROVIDERS: PCP Nurse Practitioner Family; Visit Provider Nurse Practitioner Psychiatric/Mental Health | DX: F20.0 Paranoid schizophrenia (principal); F63.81 Intermittent explosive disorder; F84.0 Autistic disorder; F71 Moderate intellectual disabilities; Z86.59 Personal history of other mental and behavioral disorders | CPT/HCPCS: 99214 ==

== ENCOUNTER → 2021-02-03 13:12 | Outpatient (BNVA) | payer MEDICARE, MEDICAID, SELFPAY | PROVIDERS: PCP Nurse Practitioner Family; Visit Provider Nurse Practitioner Psychiatric/Mental Health | DX: Z79.899 Other long term (current) drug therapy (principal) | CPT/HCPCS: 80178 ==

== ENCOUNTER → 2021-03-21 11:48 | Outpatient (BNVA) | payer MEDICARE, MEDICAID, SELFPAY | PROVIDERS: PCP Nurse Practitioner Family; Visit Provider Nurse Practitioner Psychiatric/Mental Health | DX: Z79.899 Other long term (current) drug therapy (principal) | CPT/HCPCS: 80178 ==

== ENCOUNTER → 2021-04-19 08:26 | Outpatient (BNVA) | payer MEDICARE, MEDICAID, SELFPAY | PROVIDERS: PCP Nurse Practitioner Family; Visit Provider Nurse Practitioner Psychiatric/Mental Health | DX: F20.0 Paranoid schizophrenia (principal); F63.81 Intermittent explosive disorder; F84.0 Autistic disorder; F71 Moderate intellectual disabilities; Z86.59 Personal history of other mental and behavioral disorders | CPT/HCPCS: 99214 ==

== ENCOUNTER → 2021-07-19 07:32 | Outpatient (BNVA) | payer MEDICARE, MEDICAID, SELFPAY | PROVIDERS: PCP Nurse Practitioner Family; Visit Provider Nurse Practitioner Psychiatric/Mental Health | DX: F20.0 Paranoid schizophrenia (principal); F63.81 Intermittent explosive disorder; F84.0 Autistic disorder; F71 Moderate intellectual disabilities; Z79.899 Other long term (current) drug therapy; Z86.59 Personal history of other mental and behavioral disorders | CPT/HCPCS: 99214 ==

== ENCOUNTER → 2021-08-23 07:43 | Outpatient (BNVA) | payer MEDICARE, MEDICAID, SELFPAY | PROVIDERS: PCP Nurse Practitioner Family; Visit Provider Nurse Practitioner Psychiatric/Mental Health | DX: F63.81 Intermittent explosive disorder; F84.0 Autistic disorder; F71 Moderate intellectual disabilities; Z86.59 Personal history of other mental and behavioral disorders; Z79.899 Other long term (current) drug therapy; F20.0 Paranoid schizophrenia | CPT/HCPCS: 99214 ==

== ENCOUNTER → 2021-09-05 11:31 | Outpatient (BNVA) | payer MEDICARE, MEDICAID, SELFPAY | PROVIDERS: PCP Nurse Practitioner Family; Visit Provider Nurse Practitioner Psychiatric/Mental Health | DX: Z79.899 Other long term (current) drug therapy (principal) | CPT/HCPCS: 80053; 80178; 84443 ==

== ENCOUNTER → 2021-11-15 07:21 | Outpatient (BNVA) | payer MEDICARE, MEDICAID, SELFPAY | PROVIDERS: PCP Nurse Practitioner Family; Visit Provider Nurse Practitioner Psychiatric/Mental Health | DX: F20.0 Paranoid schizophrenia (principal); Z79.899 Other long term (current) drug therapy; F63.81 Intermittent explosive disorder; F84.0 Autistic disorder; F71 Moderate intellectual disabilities; Z86.59 Personal history of other mental and behavioral disorders | CPT/HCPCS: 99214 ==

== ENCOUNTER → 2021-11-30 11:19 | Outpatient (BNVA) | payer MEDICARE, MEDICAID, SELFPAY | PROVIDERS: PCP Nurse Practitioner Family; Visit Provider Nurse Practitioner Psychiatric/Mental Health | DX: Z79.899 Other long term (current) drug therapy (principal) | CPT/HCPCS: 80178; 83036 ==

== ENCOUNTER → 2022-03-09 10:27 | Outpatient (BNVA) | payer MEDICARE, MEDICAID, OTHER, SELFPAY | PROVIDERS: PCP Nurse Practitioner; Visit Provider Nurse Practitioner Psychiatric/Mental Health | DX: Z79.899 Other long term (current) drug therapy (principal) | CPT/HCPCS: 80178 ==

== ENCOUNTER → 2022-04-28 11:19 | Outpatient (BNVA) | payer MEDICARE, MEDICAID, SELFPAY | PROVIDERS: PCP Nurse Practitioner; Referring Provider Nurse Practitioner Psychiatric/Mental Health; Visit Provider Internal Medicine | DX: E03.9 Hypothyroidism, unspecified (principal); L65.9 Nonscarring hair loss, unspecified; F20.9 Schizophrenia, unspecified; F84.5 Asperger's syndrome; Z79.899 Other long term (current) drug therapy | CPT/HCPCS: 99204 ==

== ENCOUNTER → 2022-05-16 10:49 | Outpatient (BNVA) | payer MEDICARE, MEDICAID, SELFPAY | PROVIDERS: PCP Nurse Practitioner; Visit Provider Internal Medicine | DX: E03.9 Hypothyroidism, unspecified (principal); Z79.899 Other long term (current) drug therapy | CPT/HCPCS: 84439; 84443; 84480; 86376; 86800 ==

== ENCOUNTER → 2022-09-08 10:13 | Outpatient (BNVA) | payer MEDICARE, MEDICAID, OTHER, SELFPAY | PROVIDERS: PCP Nurse Practitioner; Visit Provider Nurse Practitioner Psychiatric/Mental Health | DX: Z79.899 Other long term (current) drug therapy (principal) | CPT/HCPCS: 80061; 80178; 83036 ==

== ENCOUNTER → 2022-10-26 14:19 | Outpatient (BNVA) | payer MEDICARE, MEDICAID, SELFPAY | PROVIDERS: PCP Nurse Practitioner; Visit Provider Internal Medicine | DX: E03.9 Hypothyroidism, unspecified (principal); L65.9 Nonscarring hair loss, unspecified; Z79.890 Hormone replacement therapy | CPT/HCPCS: 84439; 84443; 99214 ==

== ENCOUNTER → 2022-12-19 13:45 | Outpatient (BNVA) | payer MEDICARE, MEDICAID, SELFPAY | PROVIDERS: PCP Nurse Practitioner; Referring Provider Internal Medicine; Visit Provider Nurse Practitioner Family | DX: L65.9 Nonscarring hair loss, unspecified (principal); L81.4 Other melanin hyperpigmentation; D22.5 Melanocytic nevi of trunk; Z71.89 Other specified counseling | CPT/HCPCS: 99204 ==

== ENCOUNTER 2022-12-22 13:08 | Outpatient (CLI) | payer OTHER, MEDICAID, SELFPAY ==
[2022-12-22 14:48] LABS: Testosterone Total 8.7 ng/dL (8.4-48.1)
[2022-12-22 15:00] LABS: Ferritin 105 ng/mL (15-150)
[2022-12-22 20:47] LABS: Folate Level > 20.0 ng/mL (4.8-37.3)
[2022-12-26 23:29] LABS: Testosterone, Free 0.8 pg/mL (0.2-5.0)
== END 2022-12-22 13:09 | disposition home or self-care (01) ==
PROVIDERS: Family Provider Nurse Practitioner; PCP Nurse Practitioner; Visit Provider Nurse Practitioner Family
DX: L81.4 Other melanin hyperpigmentation (principal); D22.5 Melanocytic nevi of trunk; Z71.89 Other specified counseling; L65.9 Nonscarring hair loss, unspecified
CPT/HCPCS: 36415; 82728; 82746; 84402; 84403

== ENCOUNTER → 2023-01-23 13:31 | Outpatient (BNVA) | payer OTHER, MEDICAID, SELFPAY | PROVIDERS: Family Provider Nurse Practitioner; PCP Nurse Practitioner; Visit Provider Nurse Practitioner Family | DX: L65.9 Nonscarring hair loss, unspecified (principal) | CPT/HCPCS: 84630 ==

== ENCOUNTER → 2023-04-05 14:33 | Outpatient (BNVA) | payer MEDICARE, MEDICAID, SELFPAY | PROVIDERS: Family Provider Nurse Practitioner; PCP Nurse Practitioner; Visit Provider Nurse Practitioner Family | DX: Z12.4 Encounter for screening for malignant neoplasm of cervix (principal); Z79.899 Other long term (current) drug therapy; E55.9 Vitamin D deficiency, unspecified; Z13.6 Encounter for screening for cardiovascular disorders; H66.93 Otitis media, unspecified, bilateral | CPT/HCPCS: 80053; 80061; 81003; 82306; 83036; 85025; 88175 ==

== ENCOUNTER → 2023-06-05 11:01 | Outpatient (BNVA) | payer MEDICARE, MEDICAID, OTHER, SELFPAY | PROVIDERS: Family Provider Nurse Practitioner; PCP Nurse Practitioner; Visit Provider Internal Medicine | DX: E03.9 Hypothyroidism, unspecified (principal); L65.9 Nonscarring hair loss, unspecified; Z79.890 Hormone replacement therapy | CPT/HCPCS: 99214 ==

== ENCOUNTER → 2023-06-21 14:14 | Outpatient (BNVA) | payer OTHER, MEDICAID, SELFPAY | PROVIDERS: PCP Nurse Practitioner; Visit Provider Nurse Practitioner Family | DX: L65.9 Nonscarring hair loss, unspecified (principal); Z71.89 Other specified counseling; L81.4 Other melanin hyperpigmentation; D22.5 Melanocytic nevi of trunk | CPT/HCPCS: 99213 ==

== ENCOUNTER → 2023-07-05 10:52 | Outpatient (BNVA) | payer OTHER, MEDICAID, SELFPAY | PROVIDERS: PCP Nurse Practitioner; Visit Provider Internal Medicine | DX: E03.9 Hypothyroidism, unspecified (principal) | CPT/HCPCS: 84439; 84443 ==

== ENCOUNTER → 2023-07-20 10:07 | Outpatient (BNVA) | payer OTHER, MEDICAID, SELFPAY | PROVIDERS: PCP Nurse Practitioner; Visit Provider Internal Medicine | DX: E03.9 Hypothyroidism, unspecified (principal) | CPT/HCPCS: 84439; 84443 ==

== ENCOUNTER → 2023-09-19 10:36 | Outpatient (BNVA) | payer OTHER, SELFPAY | PROVIDERS: PCP Nurse Practitioner; Visit Provider Internal Medicine | DX: E03.9 Hypothyroidism, unspecified (principal) | CPT/HCPCS: 84439; 84443 ==

== ENCOUNTER → 2023-09-25 10:32 | Outpatient (BNVA) | payer OTHER, MEDICAID, SELFPAY | PROVIDERS: PCP Nurse Practitioner Family; Visit Provider Internal Medicine | DX: E03.9 Hypothyroidism, unspecified (principal); L65.9 Nonscarring hair loss, unspecified; Z79.890 Hormone replacement therapy | CPT/HCPCS: 99214 ==

== ENCOUNTER → 2023-11-09 10:53 | Outpatient (BNVA) | payer OTHER, MEDICAID, SELFPAY | PROVIDERS: PCP Nurse Practitioner Family; Visit Provider Internal Medicine | DX: E03.9 Hypothyroidism, unspecified (principal) | CPT/HCPCS: 83516; 84439; 84443; 84480 ==

== ENCOUNTER → 2023-11-15 10:52 | Outpatient (BNVA) | payer OTHER, MEDICAID, SELFPAY | PROVIDERS: PCP Nurse Practitioner Family; Visit Provider Internal Medicine | DX: E03.9 Hypothyroidism, unspecified (principal); L65.9 Nonscarring hair loss, unspecified; Z79.890 Hormone replacement therapy | CPT/HCPCS: 99214 ==

== ENCOUNTER → 2024-02-22 09:02 | Outpatient (BNVA) | payer OTHER, SELFPAY | PROVIDERS: PCP Nurse Practitioner Family; Visit Provider Nurse Practitioner Psychiatric/Mental Health | DX: Z79.899 Other long term (current) drug therapy (principal) | CPT/HCPCS: 80053; 80061; 83036 ==

== ENCOUNTER → 2024-04-01 11:01 | Outpatient (BNVA) | payer MEDICAID, SELFPAY | PROVIDERS: PCP Nurse Practitioner Family; Visit Provider Nurse Practitioner Family | DX: L64.8 Other androgenic alopecia (principal); L81.4 Other melanin hyperpigmentation; D22.5 Melanocytic nevi of trunk | CPT/HCPCS: 99213 ==

== ENCOUNTER → 2024-05-13 11:15 | Outpatient (BNVA) | payer OTHER, MEDICAID, SELFPAY | PROVIDERS: PCP Nurse Practitioner Family; Visit Provider Internal Medicine | DX: E03.9 Hypothyroidism, unspecified (principal); L65.9 Nonscarring hair loss, unspecified | CPT/HCPCS: 99213; 99214 ==

== ENCOUNTER → 2024-07-02 13:40 | Outpatient (BNVA) | payer OTHER, MEDICAID, SELFPAY | PROVIDERS: PCP Nurse Practitioner Family; Visit Provider Nurse Practitioner Family | DX: L64.8 Other androgenic alopecia (principal); L81.4 Other melanin hyperpigmentation; D22.5 Melanocytic nevi of trunk | CPT/HCPCS: 99213 ==

== ENCOUNTER → 2024-07-07 14:09 | Outpatient (BNVA) | payer OTHER, MEDICAID, SELFPAY | PROVIDERS: PCP Nurse Practitioner Family; Visit Provider Nurse Practitioner Family | DX: Z79.899 Other long term (current) drug therapy (principal); Z13.6 Encounter for screening for cardiovascular disorders; E55.9 Vitamin D deficiency, unspecified; E03.9 Hypothyroidism, unspecified | CPT/HCPCS: 80053; 80061; 81003; 82306; 84439; 84443; 85025 ==

== ENCOUNTER → 2024-10-29 14:44 | Outpatient (BNVA) | payer OTHER, MEDICAID, SELFPAY | PROVIDERS: PCP Nurse Practitioner Family; Visit Provider Nurse Practitioner Family | DX: Z79.899 Other long term (current) drug therapy (principal); Z13.6 Encounter for screening for cardiovascular disorders; E55.9 Vitamin D deficiency, unspecified; E03.9 Hypothyroidism, unspecified | CPT/HCPCS: 80053; 80061; 81003; 82306; 83036; 84443; 85025 ==

== ENCOUNTER → 2024-12-31 16:12 | Outpatient (BNVA) | payer MEDICAID, SELFPAY | PROVIDERS: PCP Nurse Practitioner Family; Visit Provider Nurse Practitioner Family | DX: L64.8 Other androgenic alopecia (principal); L81.4 Other melanin hyperpigmentation; D22.5 Melanocytic nevi of trunk | CPT/HCPCS: 99213 ==